=== PATIENT | female | born 1950 | race Caucasian/White ===

== ENCOUNTER 2020-08-04 08:20 | Observation (INO) ==
--- NOTE | 2020-07-06 14:28 | PAT Medication Instructions ---
Medication Instructions Date of Service July 06, 2020 Home Medications Medication Instructions Recorded Verenice Paniagua #1 ea 07/02/20 acetaminophen 500 mg tablet 1,000 mg PO Q8H PRN azelastine 205.5 mcg (0.15 %) nasal spray 2 spray INTRANASAL DAILY PRN cholestyramine (with sugar) 4 gram oral powder 1 ea PO HS diphenoxylate-atropine 2.5 mg-0.025 mg tablet 1 tab PO Q6H PRN levothyroxine 125 mcg capsule 125 mcg PO QAM loratadine 10 mg tablet 10 mg PO DAILY PRN multivitamin 1 tab PO QAM STOP taking 48 hours before surgery cholestyramine (with sugar) 4 gram oral powder 1 ea PO HS DO NOT take the morning of surgery diphenoxylate-atropine 2.5 mg-0.025 mg tablet 1 tab PO Q6H PRN loratadine 10 mg tablet 10 mg PO DAILY PRN multivitamin 1 tab PO QAM Take morning of surgery With a small sip of water, OTHERWISE NOTHING TO EAT OR DRINK AFTER MIDNIGHT: acetaminophen 500 mg tablet 1,000 mg PO Q8H PRN (okay to take up to 4 hours prior to surgery if needed) azelastine 205.5 mcg (0.15 %) nasal spray 2 spray INTRANASAL DAILY PRN (if needed) levothyroxine 125 mcg capsule 125 mcg PO QAM Take evening before surgery acetaminophen 500 mg tablet 1,000 mg PO Q8H PRN (if needed) azelastine 205.5 mcg (0.15 %) nasal spray 2 spray INTRANASAL DAILY PRN (if needed) diphenoxylate-atropine 2.5 mg-0.025 mg tablet 1 tab PO Q6H PRN (if needed) loratadine 10 mg tablet 10 mg PO DAILY PRN (if needed) Other Notes If you have any questions please call us at [phone] or [phone] or [phone] or [phone]
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
--- NOTE | 2020-07-08 11:23 | XRay Report ---
XR chest Pre-admission PA/Lat CLINICAL HISTORY: Preoperative chest COMPARISON STUDY: No previous studies for comparison. FINDINGS: The cardiac and mediastinal contours are normal. There is no evidence of focal pulmonary co nsolidation. There is no evidence of failure. No pleural effusions are visualized.[ IMPRESSION: No active disease in the chest. ACT 112: Negative or not required by law. Electronically signed by: Toi Presley M.D. 07/08/2020 11:22 AM
[2020-07-08 12:00] LABS: Basophils # (auto) 0.02 K/uL (0-0.2); Basophils % (auto) 0.4 %; Eosinophils # (auto) 0.05 K/uL (0-0.5); Hematocrit (blood only) 34.2 % (37-47); Hemoglobin 11.1 g/dL (12.0-16.0); Lymphocytes % (auto) 27.1 %; Mean Corpuscular Hemoglobin 29.5 pg (25-34); Mean Corpuscular Hgb Conc 32.5 g/dL (32-36); Monocytes # (auto) 0.44 K/uL (0.11-0.59); Monocytes % (auto) 8.5 %; Neutrophils # (auto) 3.25 K/uL (1.4-6.5); Platelet Count 270 K/uL (130-400); RDW Coefficient of Variation 13.3 % (11.5-14.5); Red Blood Count 3.76 M/uL (4.2-5.4); White Blood Count 5.16 K/uL (4.8-10.8)
[2020-07-08 12:17] LABS: Partial Thromboplastin Time 25.6 Seconds (21.0-31.0); Prothrombin Time 10.2 Seconds (9.0-12.0)
[2020-07-08 14:36] LABS: BUN Creatinine Ratio 30.5 (10-20); Calcium 9.1 mg/dl (8.5-10.1); Creatinine Clr Calc Pharmacy 64.9 ml/min; Est GFR (African American) 68.7; Est GFR (Non-African American) 59.3; Potassium 4.9 mmol/L (3.5-5.1)
--- NOTE | 2020-07-08 16:19 | Electrocardiogram Report ---
Test Reason : Blood Pressure : / mmHG Vent. Rate : 067 BPM Atrial Rate : 067 BPM P-R Int : 146 ms QRS Dur : 092 ms QT Int : 396 ms P-R-T Axes : 055 076 054 degrees QTc Int : 418 ms Normal sinus rhythm Normal ECG No previous ECGs available Confirmed by Simón Trinh ([id number]) on 07/08/2020 4:19:16 PM Referred By: Alex Mcneil Confirmed By:Simón Trinh
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
[~2020-08-04 08:20] MED LIST: ACETAMINOPHEN 500 MG TAB PO SCH; BUPIVACAINE 0.25% 30 ML VIAL ONE; BUPIVACAINE 0.5 % 5 MG/1 ML PF 10ML VIAL ONE; BUPIVACAINE LIPOSOME/PF 266 MG, BUPIVACAINE/EPINEPHRINE 50 ML, SODIUM CHLORIDE 0.9% 30 ... INFIL SCH; DEXAMETHASONE SOD INJ 4 MG/ML VIAL ONE; EPINEPHrine INJ 1 MG/ML AMP ONE; FAMOTIDINE 20 MG TAB PO SCH; GABAPENTIN 300 MG CAP PO SCH; LR 500ML BOLUS, THEN 15ML/HR IV SCH; LR 60ML/HR IV SCH; METOCLOPRAMIDE HCL 10 MG TABLET PO SCH; Scopolamine 1 MG TDSY TD SCH; TRANEXAMIC ACID 1,000 MG **IV Intra-op IV SCH; ceFAZolin 2000MG 2,000 MG/15 ML SYR IV ONE; ceFAZolin 2000MG 2,000 MG/15 ML SYR IV SCH
--- NOTE | 2020-08-04 08:25 | History & Physical Bridge Note ---
Date of Service August 04, 2020 History & Physical Bridge Note I have examined the patient, reviewed the History & Physical and in the interval since the performance of the History & Physical I have noted the following changes of clinical significance: no changes noted
[2020-08-04] MEDS ORDERED: fentaNYL citrate 100 MCG/2 ML VIAL ONE (08:51)
[2020-08-04] MEDS ORDERED: MIDAZOLAM HCL 1 MG/ML 2ML VIAL ONE ×2 (08:51)
[2020-08-04] MEDS ORDERED: PROPOFOL IV EMULSION 10 MG/ML 20 ML VIAL IV ONE (08:51)
[2020-08-04] MEDS ORDERED: LIDOCAINE HCL 2% 2 ML VIAL/AMP(20MG/ML) INFIL ONE (08:51)
[2020-08-04] MEDS ORDERED: ONDANSETRON INJ 2 MG/ML 2 ML VIAL ONE (08:52)
[2020-08-04] MEDS ORDERED: fentaNYL citrate 100 MCG/2 ML VIAL IV PRN (09:44)
[2020-08-04] MEDS ORDERED: ONDANSETRON INJ 2 MG/ML 2 ML VIAL IV PRN ×2 (09:44→14:35)
[2020-08-04] MEDS ORDERED: ATROPINE SULFATE 0.1 MG/ML 10ML SYR IV PRN (09:44)
[2020-08-04] MEDS ORDERED: ePHEDrine sulfate 50 MG/ML AMP IV PRN (09:44)
[2020-08-04] MEDS ORDERED: SODIUM CHLORIDE 0.9% PF 50 ML VIAL ONE (10:24)
[2020-08-04] MEDS ORDERED: BUPIVACAINE 0.25% 30 ML VIAL ONE (10:24)
[2020-08-04] MEDS ORDERED: BACITRACIN INJ 50,000 UNIT VIAL ONE (10:24)
[2020-08-04] MEDS ORDERED: BUPIVACAINE LIPOSOME 1.3% 266 MG/20 ML VIAL ONE (10:24)
[2020-08-04] MEDS ORDERED: EPINEPHrine INJ 1 MG/ML AMP ONE (10:25)
--- NOTE | 2020-08-04 12:42 | Operative Report ---
Post Operative Report Pre & Post Diagnosis Operation Date: 08/04/20 10:40 Pre-Op Diagnosis: Left Knee Degenerative Joint Disease Post-Op Diagnosis: Left Knee Degenerative Joint Disease I identified the patient and participated in the time-out.: Yes Procedure Operation Date: 08/04/20 10:40 Actual Procedures p Left Total Knee Replacement(Left) - Alex Mcneil MD Surgeon Alex Mcneil MD Coffee Attendant DOREEN Pinto Estimated Blood Loss 50 Findings Consistent with Post-Op Diagnosis Operative findings revealed advanced left knee tricompartment DJD. She had grade 4 [id number] disease in all 3 compartments most severe in the patellofemoral compartment. Moderate-sized joint effusion. Slight valgus deformity to her knee. Fluids 2000 cc Specimens Left knee sent for pathology. Drains None Anesthesia Type Spinal MAC Complications none Disposition Accompanied Patient To Recovery: No Disposition: Recovery Room Indications Patient is 69-year-old female is had a several year history of increasing bilateral knee pain discomfort. She has been through extensive conservative jagruti atment the past which became less successful over time. X-rays show advanced bilateral knee DJD. She elected proceed with left total knee arthroplasty. Description of Procedure Operative implants consist of: 1. Biomet Vanguard size 65 left posterior stabilized femoral component. 2. Biomet size 75 tibial tray. 3. 10 mm posterior stabilized polyethylene insert. 4. 31 x 8 all polypatella. The patient was taken to the operating room, identified, placed on the operating table supine position general contractors were properly padded. IV antibiotics tried by anesthesia team. A spinal anesthetic and abductor canal block had been applied in the holding area. Craven catheter was placed in sterile fashion. Left factor was then placed in the left lower extremities and prepped and draped in usual sterile fashion. The left leg was elevated exsanguinated with use of an Esmarch and tourniquet placed at 300 mmHg. An anterior approach left knee was then performed to longitudinal incision centered over the patella. Sharp dissection was got through subcutaneous tissue down to the level of the extensor mechanism. A medial parapatellar arthrotomy incision was made. Some subperiosteal dissection carried out medially. The fat pad was resected from each patella tendon. Lateral patellofemoral ligament was released. Patella subluxated laterally. The knee was flexed. The osteophyte taken off distal femur. The ACL and PCL were then released in the distal femur and the tibia subluxated anteriorly. The external tibial alignment jig was then placed in the interface the tibia and adjusted 12 mm medially. Proximal tibial cut was made remove about 3 to 4 mm of bone from the medial side. The tibia was then sized to a size 75. Attention drawn the femur. The distal femur stem with a sharp drop with intramedullary canal was suction. A left 5 degree valgus cutting guide was placed. The distal femoral cutting block was pinned in place. Distal femoral cut was made to take an additional 5 mm of bone off distal femur due to overall flexion contracture. The femur was then sized to a size 65. The AP cutting block was pinned parallel to the epicondylar axis which was 9 degrees of external rotation. The anterior cut, anterior chamfer, posterior cut, posterior chamfer cuts were made. Box cutting guide was placed in just slight lateral box cut was made. The knee was flexed. The remnants of the medial lateral menisci were excised. The osteophytes were taken off the posterior aspect of the femur. I did have to release the popliteus in order to equalize the flexion gap. I brought the knee out in extension and did do a release of the IT band in order to equalize the extension gap. The trial femoral component was placed. The tibial tray was pinned in maximum external rotation and the drill and stem punch were used to create defect in proximal tibia for the tibial tray. The knee was then trialed and the 10 mm insert fit most appropriately. Attention drawn the patella. Nupathe the patella was cleaned of all soft tissues. Patella thick this measured by 18 and was fairly sclerotic. I cut this down to about a size 12 mm in thickness. The patella was then sized to a size 31. The lug holes were drilled for 31 patella. The lateral osteophyte is moved. Patella button was placed. Knee was taken through range of motion patella tracked nicely with no thumbs test. Attention drawn to placing permanent components. Nupathe all trial components were removed. Bone plug was placed in the distal femur limit blood loss. Double batch Palacos G cement was mixed. A Biomet Vanguard size 65 left posterior stabilized femoral component, size 75 tibial tray, a 10 mm posterior stabilized polyethylene insert, and a 31 x 8 all polypatella were then cemented in place. Knee was brought out in full extension total cement hardened. Final cement check was then performed. The pericapsular tissues were injected with total 100 cc of combination of 20 cc of Exparel, 30 cc normal saline, 50 cc of quarter percent Marcaine with epinephrine. Patient did receive 1 g treatment exam with casting. The tendon was then let down for final tourniquet time 58 minutes. Hemostasis assured use electrocautery. The extensor mechanism closed with combination 1 PDS suture #1 Vicryl suture in [id number] fashion. Extensor mechanism checked found to be intact with subcutaneous tissue then closed with 2 Dexon suture in a buried interrupted fashion skin was closed skin rodri. Leg was then cleaned and dried a sterile dressed composed Xeroform, 4 x 4's, sterile cast padding, ABD pad, and Canelo bandage were applied. The patient then transferred to the recovery room in stable condition. Patient tolerated the procedure well and there were no complications. Marvin Pinto, my physician surveyor's assistant, was present for the entire procedure. His assistance was essential and required for appropriate patient positioning, pr epping and draping, surgical exposure, performing the technical details of the operation, placement the implants, closure of the wound, and placement of the sterile bandage. I attest to the content of the Intraoperative Record and any orders documented therein. Any exceptions are noted below.
--- NOTE | 2020-08-04 12:48 | XRay Report ---
TWO VIEWS LEFT KNEE CLINICAL HISTORY: Postoperative examination. FINDINGS: AP and crosstable lateral portable views of the left knee are obtained. A left knee arthrop lasty is in near anatomic alignment. There has been undersurface remodeling of the patella. No acute fracture is seen. There are expected postoperative changes around the knee including skin clips, sof t tissue edema, and subcutaneous gas. IMPRESSION: Expected postoperative changes status post left knee arthroplasty. No acute fracture is s een. ACT 112: Negative or not required by law. Electronically signed by: Betito Dangelo M.D. 08/04/2020 12:47 PM
--- NOTE | 2020-08-04 12:53 | Anesthesiology Progress Note ---
Date of Service August 04, 2020 Anesthesia Post Procedure Vital Signs Vital Signs: Temp Pulse Pulse Resp BP BP Pulse Ox 08/04/20 12:50 60 20 132/69 96 08/04/20 12:40 66 20 126/60 99 08/04/20 12:34 36.4 C L 91 H 16 118/55 L 95 08/04/20 09:04 36.7 C 74 18 152/80 H 99 Transfer of Care Handoff Completed per policy Notes Mental Status: alert / awake / arousable Patient Amnestic to Procedure: Yes Nausea / Vomiting: adequately controlled Pain: adequately controlled Airway Patency, RR, SpO2: stable & adequate BP & HR: stable & adequate Hydration State: stable & adequate Neuraxial Anesthesia: was administered and sensory block is resolving Anesthetic Complications: no major complications apparent and Pt Satisfied with anesthetic care
[2020-08-04] MEDS ORDERED: HYDROmorphone INJ 0.5 MG/0.5 ML SYR IV PRN (14:35)
[2020-08-04] MEDS ORDERED: bisacodyL 10 MG SUPP PR PRN (14:35)
[2020-08-04] MEDS ORDERED: NALOXONE HCL 0.4 MG/1 ML VIAL/CARP IV PRN (14:35)
[2020-08-04] MEDS ORDERED: ALUMINUM/MAGNESIUM SUSP 30 ML UDC PO PRN (14:35)
[2020-08-04] MEDS ORDERED: MAGNESIUM HYDROXIDE SUSP 30 ML UDC PO PRN (14:35)
[2020-08-04] MEDS ORDERED: METOCLOPRAMIDE HCL INJ 5 MG/ML 2 ML VIAL IV PRN (14:35)
[2020-08-04] MEDS ORDERED: DIPHENOXYLATE/ATROPINE 2.5/0.025MG TAB PO PRN (14:45)
[2020-08-04] MEDS ORDERED: LORATADINE 10 MG TAB PO PRN (15:00)
[2020-08-04] MEDS: PROSOURCE NO CARB 30 ML/PKT PO SCH ×2 (15:20→21:41)
[2020-08-04] MEDS: ACETAMINOPHEN 500 MG TAB PO SCH ×2 (15:42→22:31)
[2020-08-04] MEDS: Scopolamine CHECK PATCH PLACEMENT SCH (15:42)
[2020-08-04] MEDS: KETOROLAC TROMETHAMINE 15 MG/ML VIAL IV SCH ×2 (15:44→22:30)
[2020-08-04] MEDS: SODIUM CHLORIDE 0.9% 1000ML 1,000 ML IV SCH (17:41)
[2020-08-04] MEDS: FERROUS GLUCONATE 324 MG TAB PO SCH (17:41)
[2020-08-04] MEDS: ASCORBIC ACID 500 MG TAB PO SCH (17:42)
[2020-08-04] MEDS ORDERED: TRANEXAMIC ACID / 0.7% NACL 1,000 MG/100 ML BAG IV SCH (18:30)
[2020-08-04] MEDS: ceFAZolin 2000MG 2,000 MG/15 ML SYR IV SCH (19:46)
[2020-08-04] MEDS: DOCUSATE SODIUM 100 MG CAP PO SCH (21:29)
[2020-08-04] MEDS: SENNA 8.6 MG TAB PO SCH (21:29)
[2020-08-04] MEDS: TAPENTADOL HCL ER 50 MG TABCR PO SCH (21:39)
[2020-08-04] MEDS: CHOLESTYRAMINE LIGHT 4 GM PKT PO SCH (21:39)
[2020-08-04] MEDS: ASPIRIN 81 MG ECTAB PO SCH (21:39)
[2020-08-05] MEDS: Scopolamine CHECK PATCH PLACEMENT SCH ×3 (01:23→15:37)
[2020-08-05] MEDS: ceFAZolin 2000MG 2,000 MG/15 ML SYR IV SCH (03:25)
[2020-08-05] MEDS: KETOROLAC TROMETHAMINE 15 MG/ML VIAL IV SCH ×5 (03:25→22:08)
[2020-08-05] MEDS: SODIUM CHLORIDE 0.9% 1000ML 1,000 ML IV SCH (04:34)
[2020-08-05] MEDS: LEVOTHYROXINE SODIUM 125 MCG TABLET PO SCH (05:33)
[2020-08-05] MEDS: ACETAMINOPHEN 500 MG TAB PO SCH ×3 (05:33→22:07)
[2020-08-05 06:04] LABS: Hematocrit (blood only) 27.1 % (37-47); Mean Corpuscular Hemoglobin 30.1 pg (25-34); Mean Corpuscular Hgb Conc 33.2 g/dL (32-36); Mean Corpuscular Volume 90.6 fL (80-100); Mean Platelet Volume 10.4 fL (7.4-10.4); Platelet Count 213 K/uL (130-400); RDW Coefficient of Variation 13.5 % (11.5-14.5); RDW Standard Deviation 44.5 fL (36.4-46.3); Red Blood Count 2.99 M/uL (4.2-5.4); White Blood Count 11.27 K/uL (4.8-10.8)
[2020-08-05 06:40] LABS: BUN Creatinine Ratio 21.8 (10-20); Creatinine Clr Calc Pharmacy 65.7 ml/min; Est GFR (African American) 69.6; Potassium 4.1 mmol/L (3.5-5.1)
[2020-08-05] MEDS ORDERED: dexAMETHasone 4 MG TAB PO SCH (08:00)
[2020-08-05] MEDS: DOCUSATE SODIUM 100 MG CAP PO SCH ×2 (08:49→21:56)
[2020-08-05] MEDS: MULTIVITAMIN TAB PO SCH (08:49)
[2020-08-05] MEDS: PROSOURCE NO CARB 30 ML/PKT PO SCH ×3 (08:49→21:56)
[2020-08-05] MEDS: TAPENTADOL HCL ER 50 MG TABCR PO SCH ×2 (08:49→22:02)
[2020-08-05] MEDS: ASPIRIN 81 MG ECTAB PO SCH ×2 (08:49→22:02)
[2020-08-05] MEDS: ASCORBIC ACID 500 MG TAB PO SCH ×2 (08:49→17:14)
[2020-08-05] MEDS: FERROUS GLUCONATE 324 MG TAB PO SCH ×2 (08:50→17:14)
[2020-08-05] MEDS ORDERED: MULTIVITAMIN TAB PO SCH (09:00)
--- NOTE | 2020-08-05 15:00 | Orthopedic Progress Note ---
Date of Service August 05, 2020 Assessment & Plan (1) Status post total left knee replacement: She was seen and examined by Dr. Mnceil today. She is hoping to be discharged to rehab, likely [facility] tomorrow. Continue PT/OT. WBAT. Teds, scds, and aspirin for dvt prophylaxis. Pain is reasonably controlled. Subjective . 69 year old female POD #1 from Left tka. She's doing pretty well. Denies chest pain or shortness of breath. She has some more pain with the knee today compared to last night. Rates her pain about 3/10. Review of Systems All systems reviewed & are unremarkable except as noted in HPI & below. Physical Exam .Alert and oriented. NAD. Left leg: dressing clean, dry, intact. Able to dorsiflex and plantar flex. NVI Results & Data Results & Data Laboratory Results . Diagnostic Findings . PG Care Time/CCT Total # of Minutes Spent Total Time Spent with Patient: Total time spent is greater than 50% in coordination of care (as documented) at patient's floor/unit and/or counseling patient: Coding Level of Care Code 30736 Post Operative Follow-Up Diagnoses Status post total left knee replacement Z96.652
[2020-08-05] MEDS: oxyCODONE HCL IR 5 MG TAB (IMMEDIATE RELEASE) PO PRN ×2 (15:37→20:19)
[2020-08-05] MEDS: SENNA 8.6 MG TAB PO SCH (21:57)
[2020-08-05] MEDS: CHOLESTYRAMINE LIGHT 4 GM PKT PO SCH (22:02)
[2020-08-06] MEDS: Scopolamine CHECK PATCH PLACEMENT SCH ×2 (01:08→08:10)
[2020-08-06] MEDS: oxyCODONE HCL IR 5 MG TAB (IMMEDIATE RELEASE) PO PRN ×2 (01:59→08:09)
[2020-08-06] MEDS: KETOROLAC TROMETHAMINE 15 MG/ML VIAL IV SCH ×2 (03:28→10:18)
[2020-08-06] MEDS: LEVOTHYROXINE SODIUM 125 MCG TABLET PO SCH (05:27)
[2020-08-06] MEDS: ACETAMINOPHEN 500 MG TAB PO SCH (05:27)
[2020-08-06 06:50] LABS: Eosinophils # (auto) 0.01 K/uL (0-0.5); Eosinophils % (auto) 0.1 %; Hematocrit (blood only) 24.9 % (37-47); Hemoglobin 8.1 g/dL (12.0-16.0); Immature Granulocytes # (auto) 0.03 K/uL (0.00-0.02); Immature Granulocytes % (auto) 0.3 %; Lymphocytes # (auto) 1.46 K/uL (1.2-3.4); Lymphocytes % (auto) 15.4 %; Mean Corpuscular Hemoglobin 29.8 pg (25-34); Mean Corpuscular Hgb Conc 32.5 g/dL (32-36); Mean Corpuscular Volume 91.5 fL (80-100); Mean Platelet Volume 10.3 fL (7.4-10.4); Monocytes # (auto) 1.39 K/uL (0.11-0.59); Monocytes % (auto) 14.6 %; Neutrophils # (auto) 6.61 K/uL (1.4-6.5); Neutrophils % (auto) 69.6 %; Platelet Count 189 K/uL (130-400); RDW Coefficient of Variation 13.9 % (11.5-14.5); RDW Standard Deviation 46.3 fL (36.4-46.3); Red Blood Count 2.72 M/uL (4.2-5.4)
--- NOTE | 2020-08-06 07:55 | Progress Notes ---
DATE: 08/06/2020 SUBJECTIVE: A 69-year-old white female postop day 2 from a left knee replacement. She is doing okay. Had a rough night pain harris, but doing better this morning. No chest pain or shortness of breath. Not feeling dizzy or lightheaded. OBJECTIVE: VITAL SIGNS: Temperature is 36.8. Vital signs stable. GENERAL: Shows a pleasant elderly female. She is sitting up in bed, looks quite comfortable. EXTREMITIES: Examination of the left leg reveals the dressing to be clean, dry and intact. Leg is well aligned. She can dorsiflex and plantarflex her foot appropriately. She is neurologically intact. LABORATORY DATA: Hemoglobin 8.1. Hematocrit 24.9. ASSESSMENT: A 69-year-old white female postop day 2 from a left knee replacement, doing reasonably well. Having some pain, but seems to be doing well with pain medicines. She is anemic, but without symptoms. PLAN: 1. DVT prophylaxis including thigh-high TEDs, SCDs, and aspirin twice a day. 2. PT/OT. Weight bear as tolerated. Left total knee protocol. 3. Pain control, doing okay with current pain regimen. 4. Anemia. Continue iron supplementation. She is asymptomatic. 5. Disposition: Plan to discharge to [facility] later today.
[2020-08-06] MEDS: MULTIVITAMIN TAB PO SCH (08:08)
[2020-08-06] MEDS: FERROUS GLUCONATE 324 MG TAB PO SCH (08:08)
[2020-08-06] MEDS: PROSOURCE NO CARB 30 ML/PKT PO SCH (08:08)
[2020-08-06] MEDS: ASCORBIC ACID 500 MG TAB PO SCH (08:08)
[2020-08-06] MEDS: ASPIRIN 81 MG ECTAB PO SCH (08:08)
[2020-08-06] MEDS: DOCUSATE SODIUM 100 MG CAP PO SCH (08:08)
[2020-08-06] MEDS: TAPENTADOL HCL ER 50 MG TABCR PO SCH (10:18)
--- NOTE | 2020-08-09 18:36 | Discharge Summary ---
Date of Service August 09, 2020 Discharge Data Procedures Performed Operation Date: 08/04/20 10:40 Actual Procedures p Left Total Knee Replacement(Left) - Alex Mcneil MD Hospital Course (1) Status post total left knee replacement: This patient is a 69 year old female admitted on 08/04/20 and underwent total knee arthroplasty. She tolerated the procedure well and there were no complications. Transferred to the PACU post op and later to the orthopedic floor for further care. She was given ancef for antibiotic prophylaxis. She was also given LUIS CARLOS stockings, SCDs, and aspirin for DVT prophylaxis. Hemoglobin, hematocrit, and vital signs were monitored during her hospital stay and remained stable. Did not require any blood transfusions. There were no complications duri ng her hospital stay. By post op day #2 the patient was tolerating a regular diet, pain was reasonably controlled with oral pain medicine, and she was participating in physical therapy. On post op day #2 the patient was discharged to a rehab facility. SHe was given printed discharge instructions including prescriptions for extra strength tylenol, aspirin, iron supplement, and oxycodone. Continue physical therapy, weight bearing as tolerated. Continue LUIS CARLOS stockings. Follow up approximately 2 weeks post op or sooner if there are problems or concerns. Coding Level of Care Code None Diagnoses Status post total left knee replacement Z96.652
== END 2020-08-06 12:12 ==
LOC: ASU 08:20 → 3E 08:20

== ENCOUNTER 2022-01-25 05:53 | Observation (INO) ==
--- NOTE | 2021-12-15 16:11 | PAT Medication Instructions ---
Medication Instructions Date of Service December 15, 2021 Home Medications Medication Instructions Recorded Wheeled Walker #1 ea 07/02/20 oxycodone 5 mg tablet 5 - 10 mg PO Q6H PRN pain #40 tabs 08/05/20 acetaminophen 500 mg tablet (Acetaminophen Extra Strength) 1,000 mg PO Q8H PRN cholestyramine (with sugar) 4 gram oral powder 1 ea PO HS diphenoxylate-atropine 2.5 mg-0.025 mg tablet 1 tab PO Q6H PRN Diarrhea loratadine 10 mg tablet 10 mg PO DAILY PRN multivitamin 1 tab PO QAM Wheeled Walker #1 ea levothyroxine 125 mcg tablet 125 mcg PO QAM oxycodone 5 mg tablet 5 - 10 mg PO Q6H PRN STOP taking 48 hours before surgery cholestyramine (with sugar) 4 gram oral powder 1 ea PO HS DO NOT take the morning of surgery diphenoxylate-atropine 2.5 mg-0.025 mg tablet 1 tab PO Q6H PRN Diarrhea loratadine 10 mg tablet 10 mg PO DAILY PRN multivitamin 1 tab PO QAM Take morning of surgery With a small sip of water, OTHERWISE NOTHING TO EAT OR DRINK AFTER MIDNIGHT: acetaminophen 500 mg tablet (Acetaminophen Extra Strength) 1,000 mg PO Q8H PRN (if needed) levothyroxine 125 mcg tablet 125 mcg PO QAM oxycodone 5 mg tablet 5 - 10 mg PO Q6H PRN(if needed) Take evening before surgery acetaminophen 500 mg tablet (Acetaminophen Extra Strength) 1,000 mg PO Q8H PRN (if needed) oxycodone 5 mg tablet 5 - 10 mg PO Q6H PRN(if needed) Other Notes If you have any questions please call us at [phone] or [phone] or [phone] or [phone]
--- NOTE | 2021-12-20 13:09 | Anesthesiology Consultation ---
Date of Service December 20, 2021 Assessment & Plan (1) Encounter for pre-operative examination: - COVID screening: Per assessment on 12/20: No known COVID-19 positive contacts or current COVID-19 related symptoms. Travel screen negative. Patient vaccinated. At surgeon discretion if preop Covid testing being done. - S/P Left TKA (08/04/20): SAB at L3/4 x1 attempt + PNB at [facility]. No issues noted per post-op anesthesia progress note. - Outpatient joint assessment: If surgeon requests review for outpatient joint pathway, patient is acceptable candidate for outpatient joint program from anesthesia standpoint pending surgeon's office assessment of pt motivation/support/completion of same day joint program preop requirements. - Anxious: Pt reports significant anxiety related to upcoming surgery/anesthesia- reporting that preoperatively she often gets nausea and diarrhea r/t the anxiety. Pt requesting preop anxiolytic if possible. Chart Review Chart Review: Acceptable Risk for Surgery and Patient seen in Pre Admission Testing Teaching & Discussion Pre-Anesthesia Teaching/Discussion Notes: Instructed NPO after midnight before surgery,except medications with 15 cc of water. Medication instructions provided according to the PAT guidelines. History Surgery Operation Date: 01/25/22 12:45 Proposed Procedures p Right Total Knee Arthroplasty - Alex Mcneil MD Height/Weight Height: 5 ft 7.75 in Weight: 101 kg Allergies Allergy/AdvReac Type Severity Reaction Status Date / Time Penicillins Allergy Mild Watery eyes Verified 12/14/21 12:08 hydrocodone [From Vicodin] AdvReac Severe Dizziness, Verified 12/14/21 12:08 heart racing, "hot" feeling Medications Home Medications Medication Instructions Recorded Confirmed Last Taken acetaminophen 500 mg tablet 1,000 mg PO Q8H PRN Pain 01/01/20 12/14/21 08/03/20 08:30 (Acetaminophen Extra Strength) cholestyramine (with sugar) 4 gram 1 ea PO HS 01/01/20 12/14/21 08/01/20 20:00 oral powder diphenoxylate-atropine 2.5 1 tab PO Q6H PRN Diarrhea 01/01/20 12/14/21 08/03/20 mg-0.025 mg tablet loratadine 10 mg tablet 10 mg PO DAILY PRN ALLERGY RELIEF 01/01/20 12/14/21 08/03/20 08:30 multivitamin 1 tab PO QAM 01/01/20 12/14/21 08/03/20 08:30 Wheeled Walker #1 ea 07/02/20 12/14/21 Unknown levothyroxine 125 mcg tablet 125 mcg PO QAM 08/04/20 12/14/21 08/04/20 oxycodone 5 mg tablet 5 - 10 mg PO Q6H PRN pain #40 tabs 08/05/20 12/14/21 Unknown Past Medical History Medical History (Updated 12/20/21 @ 15:04 by Dior Ayon) Anemia Anxiety Chronic rhinitis CKD (chronic kidney disease) Degenerative disc disease Lumbar History of anemia No known hx of blood transfusions Hypothyroidism Jaw clicking R>L, no locking Obesity Osteoarthritis Exercise / Class Metabolic Activity II 4-5 Yardwork/Stairs/Walk up hill (one FS (no CP, no SOB)) Past Family History Family History Mother Family history of diabetes mellitus Grandmother (Maternal) Family history of diabetes mellitus Other No family history of adverse response to anesthesia Past Surgical History Surgical History H/O: hysterectomy History of appendectomy History of section x1 History of cholecystectomy History of colonoscopy History of esophagogastroduodenoscopy (EGD) History of tooth extraction History of total knee replacement Left TKA (08/04/20): SAB at L3/4 x1 attempt + PNB at [facility]. No issues noted per post-op anesthesia progress note. Past Anesthesia History No Hx of Anesthesia Complications and No Family Hx of Anesthesia Complications History of PONV No Hx of PONV and Hx of Motion Sickness (Occasional) Social History Smoking Status: Former smoker tobacco type: cigarettes Do You Dip or Chew Tobacco: No Smoking End Date: Quit 40 years ago Hx Alcohol Use: Yes Alcohol type: beer and wine alcohol intake frequency: holidays/special occasions only Hx Substance Use: No substance use type: does not use Review of Systems Patient denies chest pain, shortness of breath, dyspnea on exertion, fever, chills, cough, wheezing, palpitations. Physical Exam Vital Signs VITALS BP 123/58 P 85 TEMP 98.3 SP02 96%RA RESP 16 PHYSICAL Full cervical extension range of motion. Full TMJ range of motion. TMD 3.5 finger breaths Mallampati Score 2 Dentition: upper/lower full dentures Lungs: clear throughout to auscultation Cardiac: regular rate and rhythm, no murmurs noted Spine: normal Carotid arteries: negative bruit Extremities: no edema Lab Results Anesthesia Preop Results Results Anesthesia Widget: WBC 6.29 K/ul (4.8-10.8) 12/20/21 Hgb 10.4 g/dl (12.0-16.0) L 12/20/21 Hct 31.9 % (34.1-44.9) L 12/20/21 Plt 233 K/uL (130-400) 12/20/21 Na 138 mmol/L (136-145) 12/20/21 K 4.3 mmol/L (3.5-5.1) 12/20/21 Cl 109 mmol/L (98-107) H 12/20/21 CO2 23 mmol/L (21-32) 12/20/21 BUN 30 mg/dl (6-23) H 12/20/21 Creat 0.93 mg/dl (0.6-1.2) 12/20/21 Glucose Level 96 mg/dl (70-99(Fasting)) 12/20/21 PT 10.4 Seconds (9.0-12.0) 12/20/21 PTT 27.3 Seconds (21.0-31.0) 12/20/21 INR 1.0 (0.9-1.1) 12/20/21 Blood Type O Positive 12/20/21 Antibody Screen NEGATIVE 12/20/21 Testing Electrocardiogram Date: 12/20/21 Normal sinus rhythm at 78 bpm. unconfirmed report. Chest X-Ray Date: 12/20/21 FINDINGS: Cardiomediastinal and hilar silhouettes are within normal limits. Atherosclerosis of the aorta. No pneumothorax, pleural effusion, airspace consolidation or overt pulmonary edema. Mild right hemidiaphragmatic elevation. Cholecystectomy. Degenerative changes of the shoulders and spine. IMPRESSION: No acute process.
--- NOTE | 2022-01-22 13:26 | History and Physical Report ---
DATE OF ADMISSION: 01/25/2022 CHIEF COMPLAINT: Right knee pain and discomfort. HISTORY OF PRESENT ILLNESS: The patient is a 71-year-old female well known to me from a previous lef t knee replacement done about a year and a half ago. She continues to be bothered by right knee pain at this point. She describes global pain in her knee. The more she is on it, the more it hurts. Ge ts stiff as well as the day goes on. She has had multiple injections, which provided very temporary relief. She would like to have her right knee fixed. Very happy with her left knee. PAST MEDICAL HISTORY: Significant for: 1. Hypothyroidism. 2. Low back pain/sciatica. 3. Gastroesophageal reflux disease. 4. Mild obesity with BMI of 32. 5. Hiatal hernia. PAST SURGICAL HISTORY: Includes: 1. . 2. Hysterectomy. 3. Cholecystectomy. 4. Left total knee replacement done on 08/04/2020. ALLERGIES: PENICILLIN, WHICH CAUSES SOME EYE WATERING. No respiratory problems. She does okay with oxycodone. CURRENT MEDICATIONS: Include: 1. Levothyroxine. 2. Tylenol. 3. Loratadine. 4. Multivitamin. 5. Azelastine nasal spray. SOCIAL HISTORY: A 71-year-old female. She lives by herself. Does not smoke. No alcohol intake. FAMILY HISTORY: Noncontributory. REVIEW OF SYSTEMS: Negative for diabetes, neurologic problem, vascular problem, or bleeding disorder s. No chest pain or shortness of breath. No history of DVT or PE. No known bleeding problems. PHYSICAL EXAMINATION: GENERAL: Shows a pleasant middle-aged female, looks to be in pretty good health. HEENT: Benign. NECK: Supple. No lymphadenopathy. LUNGS: Clear to auscultation. HEART: Regular rate and rhythm. ABDOMEN: Soft, nontender, nondistended. EXTREMITIES: Grossly neurovascularly intact except as follows: Examination of both knees revealed p atient walks with a slight bit of a limp. Examination of the right knee reveals a slight valgus alig nment to her knee. She has got a flexion contracture of about 10 to 15 degrees and bends only to abo ut 110 degrees. Fairly stiff knee. No pain with hip motion. Examination of the left knee reveals a well-healed incision. She has got anatomic alignment. Range of motion is 0 to 120. X-RAYS: X-rays of the right knee are reviewed. It shows advanced right knee tricompartment DJD. Sh elidia has got complete loss of her joint space, primarily laterally, but some medially. She got osteophy juni in all 3 compartments. The left knee replacement looks to be in good position without problems. ASSESSMENT: A 71-year-old female a year and a half out from the left knee replacement with advanced right knee degenerative joint disease. She has failed conservative measures. She would like to have her right knee fixed. PLAN: We will take her to the operating room and do a right total knee replacement. The risks and b enefits of the procedure were explained to the patient and include but not limited to DVT, PE, , infection, neurological injury, vascular injury, bleeding problem, pain, limited range of motion, st iffness, failure to relieve her symptoms, incomplete relief of symptoms. The patient understands and desires to proceed. Informed consent was obtained. As far as discharge plans, she is hoping to go to [facility] as she did [facility] time. She will follow braydon jacobs in clinic 2 weeks postoperatively. Job ID: [id number]
[2022-01-25] MEDS ORDERED: METOCLOPRAMIDE HCL 10 MG TABLET PO SCH (06:00)
[2022-01-25] MEDS ORDERED: FAMOTIDINE 20 MG TAB PO SCH (06:00)
[2022-01-25] MEDS ORDERED: CeleBREX 200 MG CAP PO SCH (06:00)
[2022-01-25] MEDS ORDERED: LR 500ML BOLUS, THEN 15ML/HR IV SCH (06:00)
[2022-01-25] MEDS ORDERED: Scopolamine 1 MG TDSY TD SCH (06:00)
[2022-01-25] MEDS ORDERED: LR 60ML/HR IV SCH (06:00)
[2022-01-25] MEDS ORDERED: ACETAMINOPHEN 500 MG TAB PO SCH (06:00)
[2022-01-25] MEDS ORDERED: BUPIVACAINE LIPOSOME/PF 266 MG, BUPIVACAINE/EPINEPHRINE 50 ML, SODIUM CHLORIDE 0.9% 30 ... INFIL SCH (06:00)
[2022-01-25] MEDS ORDERED: TRANEXAMIC ACID 1,000 MG **IV Intra-op IV SCH (06:00)
[2022-01-25] MEDS ORDERED: ceFAZolin 2000MG 2,000 MG/15 ML SYR IV SCH (06:00)
[2022-01-25] MEDS ORDERED: ROPIVACAINE 0.5% 5 MG/ML 30 ML VIAL ONE (06:31)
[2022-01-25] MEDS ORDERED: BUPIVACAINE 0.5 % 5 MG/1 ML PF 10ML VIAL ONE (06:31)
[2022-01-25] MEDS ORDERED: EPINEPHrine INJ 1 MG/ML AMP ONE (06:31)
--- NOTE | 2022-01-25 06:54 | History & Physical Bridge Note ---
Date of Service January 25, 2022 History & Physical Bridge Note I have examined the patient, reviewed the History & Physical and in the interval since the performance of the History & Physical I have noted the following changes of clinical significance: no changes noted
[2022-01-25] MEDS ORDERED: MIDAZOLAM HCL 1 MG/ML 2ML VIAL ONE (07:16)
[2022-01-25] MEDS ORDERED: fentaNYL citrate 100 MCG/2 ML VIAL ONE (07:16)
[2022-01-25] MEDS ORDERED: SODIUM CHLORIDE 0.9% PF 50 ML VIAL ONE (08:04)
[2022-01-25] MEDS ORDERED: BUPIVACAINE/EPINEPHRINE 0.25% 1:200,000 30 ML VIAL ONE (08:05)
[2022-01-25] MEDS ORDERED: BUPIVACAINE LIPOSOME 1.3% 266 MG/20 ML VIAL ONE (08:05)
[2022-01-25] MEDS ORDERED: ATROPINE SULFATE 0.1 MG/ML 10ML SYR IV PRN (08:12)
[2022-01-25] MEDS ORDERED: HYDROmorphone INJ 1 MG/ML SYRINGE IV PRN (08:12)
[2022-01-25] MEDS ORDERED: ePHEDrine sulfate 50 MG/ML AMP IV PRN (08:12)
[2022-01-25] MEDS ORDERED: ONDANSETRON INJ 2 MG/ML 2 ML VIAL IV PRN ×2 (08:12→11:51)
[2022-01-25] MEDS ORDERED: KETOROLAC 30 MG/ML VIAL IV PRN (08:12)
[2022-01-25] MEDS ORDERED: PROPOFOL IV EMULSION 10 MG/ML 20 ML VIAL IV ONE (09:13)
[2022-01-25] MEDS ORDERED: LIDOCAINE 2% MPF LOCAL 5 ML VIAL INFIL ONE (09:13)
[2022-01-25] MEDS ORDERED: ONDANSETRON INJ 2 MG/ML 2 ML VIAL ONE (09:13)
--- NOTE | 2022-01-25 10:44 | Operative Report ---
PG Post Operative Report Pre & Post Diagnosis Operation Date: 01/25/22 08:50 Pre-Op Diagnosis: Right Knee Degenerative Joint Disease Post-Op Diagnosis: Right Knee Degenerative Joint Disease I identified the patient and participated in the time-out.: Yes Procedure Operation Date: 01/25/22 08:50 Actual Procedures p Right Total Knee Arthroplasty(Right) - Alex Mcneil MD Surgeon Alex Mcneil MD Computer Repair Technician Marvin Pinto PA-C Estimated Blood Loss 50 Findings Consistent with Post-Op Diagnosis Operative findings were advanced right knee tricompartment DJD. She had extensive grade 4 [id number] disease in all 3 compartments with a valgus deformity to her knee as well as her chronic ACL deficiency. Diffuse osteopenia. Osteophytes in all 3 compartments. Fluids 1000 cc Specimens Right knee sent for pathology Drains None Anesthesia Type Spinal MAC Complications none Disposition Accompanied Patient To Recovery: No Indications Patient is a 71-year-old female said a long history of bilateral knee pain discomfort. She been through extensive conservative treatment. Became less successful over time. She underwent a left knee replacement just back in July and is done well from this. Continued be limited by right knee pain discomfort and stiffness. She elected proceed with surgical treatment. Description of Procedure Operative implants consist of: 1 Biomet Vanguard size 65 right posterior stabilized femoral component. 2. Biomet size 75 tibial tray. 3. 10 mm posterior stabilized polyethylene insert. 4. 34 x 8 and half all Paller patella. The patient was taken the operating room, identified, and placed on the operating table supine position. All contact areas were properly padded. IV antibiotics arrived by the anesthesia team. Spinal anesthetic and abductor canal block had been provided in the holding area. A Craven catheter was placed in sterile fashion for right Tetrick was then placed in the right lower extremities and prepped and draped in usual sterile fashion. The right leg was elevated exsanguinated with use of an Esmarch and the tourniquet was set at 300 mmHg. An anterior approach to the right knee was then performed through a longitudinal incision centered over the patella. Sharp dissection was got through subcutaneous this down the extensor mechanism. A medial parapatellar arthrotomy incision was made. Some subperiosteal dissection was carried out medially. The fat pad was resected from Neath the patella tendon. Lateral patellofemoral ligament was released. The patella subluxated laterally and the knee was flexed. The osteophytes were taken off distal femur. The ACL was absent. The PCL was released and the tibia subluxated anteriorly. The external tibial alignment jig was then placed in the interface the tibia and adjusted 14 mm medially. Proximal tibial cut was made remove about 3 to 4 mm of bone from the medial side. The tibia was then sized to a size 75. Attention drawn the femur. The distal femur was entered with sharp drill. Intramedullary canal was suction. A right 5 degree valgus cutting guide was placed. Distal femoral cutting block was pinned in place. Distal femoral cut was made to take an additional 3 mm of bone off distal femur. The femur was then sized to a size 65. The AP cutting block was pinned parallel to the epicondylar axis which was 7 degrees of external rotation. The anterior cut, anterior chamfer, posterior cut, posterior chamfer cuts were made. The box cutting guide was placed in just slight lateral and the box cut was made. The knee was flexed. The remnants of the medial and lateral menisci were excised. The osteophytes taken off the pos terior aspect the femur. A trial femoral component was placed. The tibial tray was pinned in maximum external rotation and the drill and stem punch were used to create defect in proximal tibia for the tibial tray. The knee was then trialed and the 10 mm insert fit most appropriately. Attention drawn the patella. The patella was cleaned of all soft tissues. Patella thickness measured 18 mm in thickness was cut down to 12. Was sized to a size 34 patella. The lug holes were drilled for the 34 patella. The lateral osteophyte was removed. Patella button was placed. Knee was taken through range of motion patella tracked nicely with no thumbs test. Attention drawn to placing permanent components. All trial components were removed. Bone plug was placed into the distal femur to limit blood loss. A double batch Palacos G cement was mixed. A Biomet Vanguard size 65 right posterior stabilized femoral component, size 75 tibial tray, 10 mm posterior stabilized polyethylene insert, and a 34 x 8 and half all Paller patella then cemented in place. The knee was brought out into full extension until cement hardened. Final cement check was then performed. The pericapsular tissues were injected with total of 100 cc of combination of 20 cc of Exparel, 30 cc normal saline, 50 cc of quarter percent Marcaine with epinephrine. Patient did receive 1 g tranexamic acid. The tourniquet was then let down for final tourniquet time 57 minutes. Hemostasis reduced electrocautery. Extensor mechanism closed with combination 1 PDS suture #1 Vicryl suture in [id number] fashion. Extensor mechanism checked found to be intact and subcutaneous tissue then closed with 2 Dexon suture buried knot fashion and the skin was closed with skin rodri. Leg was then cleaned and dried a sterile dressing was Xeroform, 4 x 4's, sterile cast padding, Canelo bandage were applied. Patient then transferred to the recovery room in stable condition. The patient tolerated the procedure well and there were no complications. Marvin Pinto, my physician sales assistants and salespersons, was present for the entire procedure. His assistance was essential and required for appropriate patient positioning, prepping and draping, surgical exposure, performing the technical details of the operation, placement the implants, closure of the wound, and placement of the sterile bandage. I attest to the content of the Intraoperative Record and any orders documented therein. Any exceptions are noted below.
[2022-01-25] MEDS ORDERED: bisacodyL 10 MG SUPP PR PRN (11:51)
[2022-01-25] MEDS ORDERED: [UNRECOGNIZED DRUG - OTHER] PO PRN (11:51)
[2022-01-25] MEDS ORDERED: ALUMINUM/MAGNESIUM SUSP 30 ML UDC PO PRN (11:51)
[2022-01-25] MEDS ORDERED: LORATADINE 10 MG TAB PO PRN (11:51)
[2022-01-25] MEDS ORDERED: MAGNESIUM HYDROXIDE SUSP 30 ML UDC PO PRN (11:51)
[2022-01-25] MEDS ORDERED: HYDROmorphone INJ 0.5 MG/0.5 ML SYR IV PRN (11:51)
[2022-01-25] MEDS ORDERED: NALOXONE HCL 0.4 MG/1 ML VIAL/CARP IV PRN (11:51)
[2022-01-25] MEDS ORDERED: METOCLOPRAMIDE HCL INJ 5 MG/ML 2 ML VIAL IV PRN (11:51)
--- NOTE | 2022-01-25 13:03 | Anesthesiology Progress Note ---
Date of Service January 25, 2022 Anesthesia Post Procedure Vital Signs Vital Signs: Temp Pulse Resp BP Pulse Ox O2 Del Method 01/25/22 12:45 61 16 154/74 H 96 Room Air 01/25/22 11:45 60 14 168/77 H 96 Room Air 01/25/22 11:30 59 L 14 159/80 H 95 Room Air 01/25/22 11:15 60 14 158/72 H 94 Room Air 01/25/22 11:05 36.5 C 68 14 146/74 H 95 Room Air 01/25/22 10:55 63 14 143/73 H 94 Room Air 01/25/22 10:45 63 20 116/89 98 Room Air 01/25/22 10:39 36.5 C 70 16 144/71 H 96 Room Air 01/25/22 06:19 36.7 C 76 20 136/83 95 Room Air Pain Intensity Right Knee: Pain Intensity: 0 Transfer of Care Handoff Completed per policy Notes Mental Status: alert / awake / arousable Patient Amnestic to Procedure: Yes Nausea / Vomiting: adequately controlled Pain: adequately controlled Airway Patency, RR, SpO2: stable & adequate BP & HR: stable & adequate Hydration State: stable & adequate Anesthetic Complications: no major complications apparent
--- NOTE | 2022-01-25 14:06 | XRay Report ---
TWO VIEWS RIGHT KNEE CLINICAL HISTORY: Postoperative examination. FINDINGS: AP and crosstable lateral portable views of the right knee are obtained. A right knee arthr oplasty is in near anatomic alignment. There has been undersurface remodeling of the patella. No acut e fracture is seen. There are expected postoperative changes around the knee including skin clips, so ft tissue edema, and subcutaneous gas. IMPRESSION: Expected postoperative changes status post right knee arthroplasty. No acute fracture is seen. ACT 112: Negative or not required by law. Electronically signed by: Betito Dangelo M.D. 01/25/2022 2:04 PM
[2022-01-25] MEDS: oxyCODONE HCL IR 5 MG TAB (IMMEDIATE RELEASE) PO PRN (14:31)
[2022-01-25] MEDS: DIPHENOXYLATE/ATROPINE 2.5/0.025MG TAB PO PRN ×2 (14:47→21:24)
[2022-01-25] MEDS: SODIUM CHLORIDE 0.9% 1000ML 1,000 ML IV SCH (15:56)
[2022-01-25] MEDS: ACETAMINOPHEN 500 MG TAB PO SCH ×2 (15:59→21:25)
[2022-01-25] MEDS: KETOROLAC TROMETHAMINE 15 MG/ML VIAL IV SCH ×2 (16:00→16:02)
[2022-01-25] MEDS: Scopolamine CHECK PATCH PLACEMENT SCH (16:03)
[2022-01-25] MEDS ORDERED: TRANEXAMIC ACID / 0.7% NACL 1,000 MG/100 ML BAG IV SCH (16:45)
[2022-01-25] MEDS: ceFAZolin 2000MG 2,000 MG/15 ML SYR IV SCH (17:29)
[2022-01-25] MEDS: ASCORBIC ACID 500 MG TAB PO SCH (18:16)
[2022-01-25] MEDS: ASPIRIN 81 MG ECTAB PO SCH (20:23)
[2022-01-25] MEDS: CHOLESTYRAMINE LIGHT 4 GM PKT PO SCH (20:23)
[2022-01-25] MEDS: TAPENTADOL HCL ER 50 MG TABCR PO SCH (20:23)
[2022-01-25] MEDS: DOCUSATE SODIUM 100 MG CAP PO SCH (20:25)
[2022-01-25] MEDS: SENNA 8.6 MG TAB PO SCH (20:25)
[2022-01-26] MEDS: ceFAZolin 2000MG 2,000 MG/15 ML SYR IV SCH (00:20)
[2022-01-26] MEDS: Scopolamine CHECK PATCH PLACEMENT SCH ×3 (00:25→16:24)
[2022-01-26] MEDS: SODIUM CHLORIDE 0.9% 1000ML 1,000 ML IV SCH (00:25)
[2022-01-26] MEDS: LEVOTHYROXINE SODIUM 125 MCG TABLET PO SCH (05:39)
[2022-01-26] MEDS: ACETAMINOPHEN 500 MG TAB PO SCH ×3 (05:39→23:17)
[2022-01-26 07:50] LABS: Hematocrit (blood only) 29.1 % (34.1-44.9); Hemoglobin 9.5 g/dl (12.0-16.0); Mean Corpuscular Hemoglobin 28.9 pg (25.0-34.0); Mean Corpuscular Hgb Conc 32.6 g/dL (32.0-36.0); Mean Corpuscular Volume 88.4 fL (80.0-100.0); Mean Platelet Volume 10.1 fL (9.4-12.3); Platelet Count 196 K/uL (130-400); RDW Coefficient of Variation 12.7 % (11.5-14.5); RDW Standard Deviation 41.3 fL (36.4-46.3); Red Blood Count 3.29 M/uL (3.93-5.22); White Blood Count 7.95 K/ul (4.8-10.8)
[2022-01-26] MEDS ORDERED: dexAMETHasone 10 MG in SYRINGE 0 ML IV SCH (08:00)
[2022-01-26 08:27] LABS: BUN Creatinine Ratio 14.5 (10-20); Calcium 8.2 mg/dl (8.5-10.1); Creatinine Clr Calc Pharmacy 77.4 ml/min; Est GFR (African American) 82.8 ml/min; Est GFR (Non-African American) 71.4 ml/min; Potassium 4.1 mmol/L (3.5-5.1)
[2022-01-26] MEDS: DOCUSATE SODIUM 100 MG CAP PO SCH ×2 (08:37→20:54)
[2022-01-26] MEDS: TAPENTADOL HCL ER 50 MG TABCR PO SCH ×2 (08:42→20:48)
[2022-01-26] MEDS: ASPIRIN 81 MG ECTAB PO SCH ×2 (08:42→20:50)
[2022-01-26] MEDS: ASCORBIC ACID 500 MG TAB PO SCH ×2 (08:42→16:26)
[2022-01-26] MEDS: MULTIVITAMIN TAB PO SCH (08:42)
[2022-01-26] MEDS ORDERED: MULTIVITAMIN TAB PO SCH (09:00)
--- NOTE | 2022-01-26 12:24 | Progress Notes ---
DATE OF SERVICE: 01/26/2022. SUBJECTIVE: A 71-year-old female postoperative day 1 from right knee replacement. She is doing quit e a bit better today. She has had some diarrhea preoperatively, but this seems to be a bit better ov er the past 12-24 hours. She was nauseated last evening, feeling better this morning. No chest pain or shortness of breath. Not feeling dizzy or lightheaded. OBJECTIVE: VITAL SIGNS: Temperature 36.8. Vital signs are stable. PHYSICAL EXAMINATION: GENERAL: Shows a pleasant middle-aged female. Lying in bed, looks pretty comfortable. LUNGS: Clear to auscultation. HEART: Regular rate and rhythm. ABDOMEN: Soft, nontender, nondistended. EXTREMITIES: Grossly neurovascularly intact except as follows: Examination of the right leg reveals the leg to be well aligned. Dressing is clean, dry and intact. She can dorsiflex and plantarflex h er foot appropriately. NEUROLOGIC: She is neurologically intact. LABORATORY DATA: Hemoglobin 9.5. Hematocrit 29.1. Electrolytes are stable. ASSESSMENT: A 71-year-old female postoperative day 1 from right knee replacement, doing reasonably w ell. Pain is controlled. She has had some intermittent diarrhea preoperatively, but this seems to b e improved currently. PLAN: 1. DVT prophylaxis including thigh-high TEDs, SCDs, and aspirin twice a day. 2. PT/OT. Weight bear as tolerated. Right total knee protocol. 3. Pain control, doing okay with current pain regimen. 4. Disposition: She is hoping to go to [facility] for a brief rehab stay. [employer] is working on this. Job ID: [id number]
[2022-01-26] MEDS: oxyCODONE HCL IR 5 MG TAB (IMMEDIATE RELEASE) PO PRN ×2 (14:07→20:48)
[2022-01-26] MEDS: SENNA 8.6 MG TAB PO SCH (20:54)
[2022-01-26] MEDS: CHOLESTYRAMINE LIGHT 4 GM PKT PO SCH (20:54)
[2022-01-27] MEDS: Scopolamine CHECK PATCH PLACEMENT SCH ×3 (01:46→15:48)
[2022-01-27] MEDS: ACETAMINOPHEN 500 MG TAB PO SCH ×2 (05:27→14:54)
[2022-01-27] MEDS: LEVOTHYROXINE SODIUM 125 MCG TABLET PO SCH (05:27)
[2022-01-27] MEDS: TAPENTADOL HCL ER 50 MG TABCR PO SCH (08:40)
[2022-01-27] MEDS: MULTIVITAMIN TAB PO SCH (08:40)
[2022-01-27] MEDS: ASPIRIN 81 MG ECTAB PO SCH (08:40)
[2022-01-27] MEDS: ASCORBIC ACID 500 MG TAB PO SCH ×2 (08:40→16:16)
[2022-01-27] MEDS: DOCUSATE SODIUM 100 MG CAP PO SCH (08:42)
--- NOTE | 2022-01-27 09:04 | Progress Notes ---
DATE OF SERVICE: 01/27/2022. SUBJECTIVE: A 71-year-old female postop day 2 from right knee replacement. Doing much better this m orning. Pain is controlled. Just feeling better. OBJECTIVE: VITAL SIGNS: Temperature 37.0. Vital signs are stable. PHYSICAL EXAMINATION: GENERAL: Shows a pleasant middle-aged female. She is sitting up on bed this morning and looks quite good. Looks comfortable. EXTREMITIES: Examination of the right leg reveals the leg to be well aligned. Dressing is clean, dr y and intact. She is neurologically intact. ASSESSMENT: A 71-year-old female postoperative day 2 from right knee replacement, doing quite a bit better. Pain is controlled. She is neurologically intact. PLAN: 1. DVT prophylaxis includes thigh-high TEDs, SCDs, and aspirin twice a day. 2. PT, OT, weightbear as tolerated. Right total knee protocol. 3. Pain control, doing okay with current pain regimen. 4. Disposition: Plan to discharge to rehab today. We will make sure she has got a bed and approved . Job ID: [id number]
[2022-01-27] MEDS: oxyCODONE HCL IR 5 MG TAB (IMMEDIATE RELEASE) PO PRN (13:09)
--- NOTE | 2022-01-28 16:06 | Discharge Summary ---
Date of Service January 28, 2022 Discharge Data Procedures Performed Operation Date: 01/25/22 08:50 Actual Procedures p Right Total Knee Arthroplasty(Right) - Alex Mcneil MD Hospital Course (1) Status post total right knee replacement: This is a 71 year old patient admitted on 01/25/22 and underwent total knee arthroplasty. She tolerated the procedure well and there were no complications. Transferred to the PACU post op and later to the orthopedic floor for further care. She was given ancef for antibiotic prophylaxis. She was also given LUIS CARLOS stockings, SCDs, and aspirin for DVT prophylaxis. Hemoglobin, hematocrit, and vital signs were monitored during her hospital stay and remained stable. Did not require any blood transfusions. There were no complications during her hospital stay. By post op day #2 the patient was tolerating a regular diet, pain was reasonably controlled with oral pain medicine, and she was participating in physical therapy. On post op day #2 the patient was discharged to a rehab facility. She was given printed discharge instructions including prescriptions for extra strength tylenol, aspirin, and oxycodone. Continue physical therapy, weight bearing as tolerated. Continue LUIS CARLOS stockings. Follow up approximately 2 weeks post op or sooner if there are problems or concerns. Coding Level of Care Code None Diagnoses Status post total right knee replacement Z96.651
== END 2022-01-27 17:20 ==
LOC: PACUINP 05:53 → ASU 05:53 → 3E 15:45

== ENCOUNTER 2022-07-31 13:05 | Inpatient (IN) ==
[2022-07-31] MEDS ORDERED: ONDANSETRON INJ 2 MG/ML 2 ML VIAL IV STA ×2 (14:14→16:43)
[2022-07-31] MEDS ORDERED: LIDOCAINE 5% 1 PATCH TD STA (14:14)
[2022-07-31] MEDS ORDERED: HYDROmorphone INJ 0.5 MG/0.5 ML SYR IV STA ×2 (14:14→16:38)
--- NOTE | 2022-07-31 14:18 | Emergency Department Note ---
History of Present Illness General Chief complaint: Back Injury/Pain Stated complaint: SEVERE BACK PAIN SHOOTING DOWN LEG Time Seen by Provider: 07/31/22 13:58 History of Present Illness Maximum Pain Intensity: 10 This is a 71-year-old female that presents to the emergency department via private vehicle accompanied by [id number] with complaints of "severe right low back pain that radiates down right leg". Patient began initially with some discomfort this past Monday. No known trauma or injury. She believes that she rolled over in bed causing her discomfort. She was doing okay until yesterday. It seemed to worsen yesterday. She did have a 6-hour car ride yesterday. Kenya montgomery denies any history of L-spine surgery. No fevers or chills. No abdominal pain. No chest pain or shortness of breath. She points to the right low back/right gluteal region as location of discomfort that radiates through the right gluteal region and into the right lower extremity to the foot. It is a sharp pain. Current pain 10/10. She notes that she cannot stand up secondary to the pain or fully straighten. She does note some lower extremity weakness. She denies any bowel or bladder incontinence or numbness/tingling to genital region. Home Medications Medication Instructions Recorded Confirmed Type cholestyramine (with sugar) 4 gram 1 ea PO HS 01/01/20 07/31/22 History oral powder diphenoxylate-atropine 2.5 1 tab PO Q6H PRN Diarrhea 01/01/20 07/31/22 History mg-0.025 mg tablet loratadine 10 mg tablet 10 mg PO DAILY PRN ALLERGY RELIEF 01/01/20 07/31/22 History multivitamin 1 tab PO QAM 01/01/20 07/31/22 History Wheeled Walker #1 ea 07/02/20 07/31/22 Rx levothyroxine 125 mcg tablet 125 mcg PO DAILYBB 08/04/20 07/31/22 History doxylamin 12.5 mg-PSE 10 mg-DM 20 1 packet PO MONTHLY PRN stomach 01/25/22 07/31/22 History mg-acetaminophen 650 mg oral pwdr problems pk (Gisella-[place] Plus Cold-Flu) Allergies Allergy/AdvReac Type Severity Reaction Status Date / Time acesulfame Allergy Intermediate Hives Verified 01/26/22 16:30 aspartame Allergy Intermediate Hives Verified 01/26/22 16:30 saccharin Allergy Intermediate Hives Verified 01/26/22 16:30 sucralose Allergy Intermediate Hives Verified 01/26/22 16:30 [From Splenda (sucralose)] Penicillins Allergy Mild Watery eyes Verified 01/25/22 06:26 hydrocodone [From Vicodin] AdvReac Severe Dizziness, Verified 01/25/22 06:26 heart racing, "hot" feeling Past Med/Surg History Medical History Anemia Anxiety Chronic rhinitis CKD (chronic kidney disease) CKD (chronic kidney disease), stage III Degenerative disc disease Lumbar Encounter for pre-operative examination Encounter for pre-operative examination History of anemia No known hx of blood transfusions Hypothyroidism Jaw clicking R>L, no locking Obesity Osteoarthritis Surgical History H/O: hysterectomy History of appendectomy History of section x1 History of cholecystectomy History of colonoscopy History of esophagogastroduodenoscopy (EGD) History of tooth extraction History of total knee replacement Left TKA (08/04/20): SAB at L3/4 x1 attempt + PNB at [facility]. No issues noted per post-op anesthesia progress note. Family History Mother Family history of diabetes mellitus Grandmother (Maternal) Family history of diabetes mellitus Other No family history of adverse response to anesthesia Social History Smoking Status: Former smoker Tobacco Type: Cigarettes Smoking End Date: quit 30 yrs ago; Second Hand Exposure: No; Hx Alcohol Use: Yes Alcohol type: beer and wine Alcohol Intake Frequency: Monthly or Less Hx Substance Use: No Preferred Language: Faroese Communication Ability: Effective Patient Registration Rep Required: No Beliefs That Will Affect Care: None marital status: Single Current Living Situation: Family Feels Safe at Home: Yes Assistive Devices: Walker Review of Systems A total of 10 systems reviewed and were otherwise negative Physical Exam Vital Signs Vital Signs - 24 hr 07/31/22 13:15 07/31/22 15:06 07/31/22 17:45 Temperature 36.2 C L Temperature Source Temporal Artery Scan Pulse Rate 77 Pulse Rate [Right Finger] 74 64 Respiratory Rate 17 16 16 Blood Pressure 168/76 H Blood Pressure [Right Arm] 197/93 H Blood Pressure Mean 106 Blood Pressure Mean [Right Arm] 127 Pulse Oximetry 97 94 94 Oxygen Delivery Method Room Air Room Air Sepsis Recent Fever Within 48 Hours No Sepsis New/Unexplained Change in Mental Status N/A Sepsis Action Taken by Nursing No Action Required VITAL SIGNS - Vital signs and nursing notes were reviewed. Stable and afebrile. GENERAL -71-year-old female appearing her stated age. The patient is sitting at the edge of the examination bed with her feet on the floor. She is fully flexed at the L-spine and in a bent position. Her upper extremity is over her knees. She otherwise communicates well with provider and answers questions appropriately. SKIN - Without rashes. No meningeal or petechial rash. The skin overlying the low back is unremarkable HEAD - NC/AT. EYES - Sclera anicteric. NECK - Neck with FROM. No C-spine tenderness. No nuchal rigidity. LUNGS - Chest wall symmetric without accessory muscle use, intercostals retractions, or central cyanosis. Normal vesicular breath sounds CTA B/L. No wheezes, rales, or rhonchi appreciated. CARDIAC - RRR with S1/S2. No murmur, rubs, or gallops appreciated. ABDOMEN - Abdominal contour normal without pulsations or visible masses. BS normoactive all four quadrants. No tenderness, palpable masses, h epatosplenomegaly, or ascites noted. EXTREMITIES - No clubbing or peripheral cyanosis. Decreased ability to plantar flex and extend actively to the right foot/ankle against resistance on the right compared to the left. Patient is warm and well-perfused throughout the bilateral lower extremities without neurovascular deficit. +5/5 strength noted in UE/LE bilaterally. MUSCULOSKELETALthere is reproducible tenderness palpation overlying the right superior gluteal region/right paraspinous musculature of the L-spine. No bony tenderness or step-off deformity. NEUROLOGIC - Cranial nerves II through XII grossly intact. PSYCH - A&Ox3 and cooperates fully with examiner. Pt is very pleasant and in teracts well with examiner. Course Administered Medications Miscellaneous (Remove Lidoderm Patch) 1 each N/A DAILY@2100 ABELARDO Stop: 08/30/22 20:59 Last Admin: 07/31/22 19:13 Dose: 1 each Documented By: EARLE Discontinued Medications Diazepam (Diazepam 2 Mg Tablet) 2 mg PO NOW STA Stop: 07/31/22 18:46 Last Admin: 07/31/22 19:13 Dose: 2 mg Documented By: EARLE Hydromorphone HCl (Hydromorphone Inj 0.5 Mg/0.5 Ml Syr) 0.5 mg IV NOW STA Stop: 07/31/22 14:15 Last Admin: 07/31/22 15:03 Dose: 0.5 mg Documented By: SHAHIDA Hydromorphone HCl (Hydromorphone Inj 0.5 Mg/0.5 Ml Syr) 0.5 mg IV NOW STA Stop: 07/31/22 16:39 Last Admin: 07/31/22 16:45 Dose: Not Given Documented By: SHAHIDA Ibuprofen (Ibuprofen 600 Mg Tab) 600 mg PO NOW STA Stop: 07/31/22 18:46 Last Admin: 07/31/22 19:13 Dose: 600 mg Documented By: EARLE Lidocaine (Lidocaine 5% 1 Patch) 1 patch TD NOW STA Stop: 07/31/22 14:15 Last Admin: 07/31/22 15:03 Dose: 1 patch Documented By: SHAHIDA Ondansetron HCl (Ondansetron Inj 2 Mg/Ml 2 Ml Vial) 4 mg IV NOW STA Stop: 07/31/22 14:15 Last Admin: 07/31/22 15:03 Dose: 4 mg Documented By: SHAHIDA Ondansetron HCl (Ondansetron Inj 2 Mg/Ml 2 Ml Vial) 4 mg IV NOW STA Stop: 07/31/22 16:44 Last Admin: 07/31/22 16:46 Dose: 4 mg Documented By: SHAHIDA Medical Decision Making Laboratory Data 07/31/22 14:57 07/31/22 14:57 Lab Results 07/31/22 07/31/22 07/31/22 Range/Units 14:57 14:57 17:18 WBC 11.81 H (4.8-10.8) K/ul RBC 4.00 L (4.20-5.40) M/uL Hgb 11.5 L (12.0-16.0) g/dl Hct 35.0 L (37.0-47.0) % MCV 87.5 (80.0-100.0) fL MCH 28.8 (25.0-34.0) pg MCHC 32.9 (32.0-36.0) g/dL RDW Std Deviation 42.5 (36.4-46.3) fL RDW Coeff of [place] 13.3 (11.5-14.5) % Plt Count 294 (130-400) K/uL MPV 10.2 (9.4-12.4) fL Immature Gran % (Auto) 0.3 % Neut % (Auto) 83.0 % Lymph % (Auto) 7.7 % Harding % (Auto) 8.6 % Eos % (Auto) 0.1 % Baso % (Auto) 0.3 % Neut # (Auto) 9.81 H (1.40-6.50) K/uL Lymph # (Auto) 0.91 L (1.2-3.4) K/uL Harding # (Auto) 1.02 H (0.11-0.59) K/uL Eos # (Auto) 0.01 (0-0.50) K/uL Baso # (Auto) 0.03 (0-0.2) K/uL Immature Gran # (Auto) 0.03 (0.01-0.20) K/uL Sodium 139 (136-145) mmol/L Potassium 3.9 (3.5-5.1) mmol/L Chloride 109 H (98-107) mmol/L Carbon Dioxide 22 (21-32) mmol/L Anion Gap 8 (3-11) BUN 25 H (6-23) mg/dl Creatinine 1.18 (0.6-1.2) mg/dl Est Cr Clr Drug Dosing Not Reportable Est GFR ( Amer) 54.1 ml/min Est GFR (Non-Af Amer) 46.7 ml/min BUN/Creatinine Ratio 21.2 H (10-20) Glucose 118 H (70-99(Fasting)) mg/dl Calcium 9.4 (8.6-10.3) mg/dl Total Bilirubin 0.6 (0.2-1.0) mg/dl AST 22 (13-39) U/L ALT 19 (7-52) U/L Alkaline Phosphatase 95 (34-104) U/L Total Protein 7.4 (6.0-8.3) gm/dl Albumin 4.2 (3.4-5.0) gm/dl Globulin 3.2 (2.5-4.0) gm/dl Albumin/Globulin Ratio 1.3 (0.9-2) SARS-CoV-2, RNA, NAAT NEGATIVE (NEGATIVE) Imaging Data Radiologist's Impression: Lumbar Spine MRI 07/31/22 14:16 MR lumbar spine wo con CLINICAL HISTORY: low back pain, weakness TECHNIQUE: Multiplanar sequences through the lumbar spine were obtained, without intravenous contrast. Comparison: None available at the time of this dictation. FINDINGS: Multilevel disc disease is seen. L1-L2: No significant abnormality. L2-L3: Broad-based posterior disc bulge is seen without significant canal stenosis. L3-L4: Broad-based posterior disc bulge, right greater than left, with mild right neural foraminal stenosis. L4-L5: Broad-based posterior disc bulge without significant neuroforaminal stenosis. L5-S1: No significant abnormality. The spinal ligaments are intact, without evidence of disruption or abnormal signal intensity. The spinal cord is normal in signal intensity and there is no evidence of cord contusion. There is no evidence of an extradural, intradural, extramedullary or intramedullary lesion. Visualized soft tissues are normal. IMPRESSION: Multilevel degenerative disc disease without significant canal stenosis. There is mild right neuroforaminal stenosis. ACT 112: Negative or not required by law. Electronically signed by: Gilbert Mendiola M.D. 07/31/2022 4:57 PM MDM Narrative Patient was seen and evaluated as above in room D09. Review was performed of triage nursing notes and vital signs. After obtaining a thorough history and physical examination the above work up was performed. Patient presents to us today for assessment of low back pain. Patient does appear to be in pain. Pain is mainly in the right gluteal region that radiates into her right leg. Options of care were discussed with the patient. IV access was established and labs were drawn. Noting the patient's subjective lower extremity weakness in the setting of significant low back pain to the point where the patient cannot ambulate or fully stand/straight and I do believe that MRI of the L-spine is warranted. Presentation is felt to be musculoskeletal in nature. No evidence of acute intra-abdominal process clinically. MRI of the L-spine as above. Multilevel degenerative disc disease without significant central canal stenosis. Mild right neuroforaminal stenosis. Patient presentation most consistent with that of lumbar radiculopathy. While here in the ED she was medicated with IV Dilaudid for pain which appears that she has received this in the past. Blood work reveals mild leukocytosis 11.81. Mild anemia noted with hemoglobin of 11.5. No emergent metabolic disturbance. Evidence of mild dehydration with BUN at 25. Mild hyperglycemia 118. At this time with the patient having significant pain on arrival with trouble ambulating secondary to pain I do believe that further evaluation and management is warranted in the inpatient setting. Upon return from MRI I did reevaluate the patient. I initially ordered additional IV analgesia however she notes her pain was okay at that time however she did note some nausea. Additional IV Zofran was ordered. Patient and [id number] at bedside amenable to plan of care to proceed with inpatient management. Case discussed with the hospitalist service. Please refer to further documentation regarding her stay. GCS: 15 In the evaluation and treatment of this patient the following differential diagnosis entertained: Fracture, dislocation, subluxation, cauda equina syndrome, AAA, diverticulitis, appendicitis, torsion, osteomyelitis, piriformis syndrome, strain, sprain, among others. Impression & Plan Acute right lumbar radiculopathy Discharge Plan Visit Data Chief Complaint: Back Injury/Pain Stated Complaint: SEVERE BACK PAIN SHOOTING DOWN LEG ED Provider: Roland Onofre ED Midlevel Provider: Prieto Harris Discharge Problem: Acute right lumbar radiculopathy Patient Disposition: Admitted As Inpatient Condition: Good Discharge Instructions Interventions: ED Discharge Assessment Last Done: 07/31/22 19:29
[2022-07-31 15:28] LABS: Basophils # (auto) 0.03 K/uL (0-0.2); Basophils % (auto) 0.3 %; Eosinophils # (auto) 0.01 K/uL (0-0.50); Eosinophils % (auto) 0.1 %; Hemoglobin 11.5 g/dl (12.0-16.0); Immature Granulocytes # (auto) 0.03 K/uL (0.01-0.20); Immature Granulocytes % (auto) 0.3 %; Lymphocytes # (auto) 0.91 K/uL (1.2-3.4); Lymphocytes % (auto) 7.7 %; Mean Corpuscular Hemoglobin 28.8 pg (25.0-34.0); Mean Corpuscular Hgb Conc 32.9 g/dL (32.0-36.0); Mean Corpuscular Volume 87.5 fL (80.0-100.0); Mean Platelet Volume 10.2 fL (9.4-12.4); Monocytes # (auto) 1.02 K/uL (0.11-0.59); Monocytes % (auto) 8.6 %; Neutrophils # (auto) 9.81 K/uL (1.40-6.50); Platelet Count 294 K/uL (130-400); RDW Coefficient of Variation 13.3 % (11.5-14.5); RDW Standard Deviation 42.5 fL (36.4-46.3); White Blood Count 11.81 K/ul (4.8-10.8)
[2022-07-31 15:38] LABS: Alanine Aminotransferase 19 U/L (7-52); Albumin Globulin Ratio 1.3 (0.9-2); Albumin Level 4.2 gm/dl (3.4-5.0); Alkaline Phosphatase 95 U/L (34-104); Anion Gap 8 (3-11); Aspartate Aminotransferase 22 U/L (13-39); BUN Creatinine Ratio 21.2 (10-20); Bilirubin,Total 0.6 mg/dl (0.2-1.0); Blood Urea Nitrogen 25 mg/dl (6-23); Calcium 9.4 mg/dl (8.6-10.3); Carbon Dioxide 22 mmol/L (21-32); Chloride 109 mmol/L (98-107); Est GFR (African American) 54.1 ml/min; Est GFR (Non-African American) 46.7 ml/min; Globulin 3.2 gm/dl (2.5-4.0); Glucose 118 mg/dl (70-99(Fasting)); Potassium 3.9 mmol/L (3.5-5.1); Sodium 139 mmol/L (136-145); Total Protein 7.4 gm/dl (6.0-8.3)
--- NOTE | 2022-07-31 16:58 | Magnetic Resonance Report ---
MR lumbar spine wo con CLINICAL HISTORY: low back pain, weakness TECHNIQUE: Multiplanar sequences through the lumbar spine were obtained, without intravenous contrast . Comparison: None available at the time of this dictation. FINDINGS: Multilevel disc disease is seen. L1-L2: No significant abnormality. L2-L3: Broad-based posterior disc bulge is seen without significant canal stenosis. L3-L4: Broad-based posterior disc bulge, right greater than left, with mild right neural foraminal st enosis. L4-L5: Broad-based posterior disc bulge without significant neuroforaminal stenosis. L5-S1: No significant abnormality. The spinal ligaments are intact, without evidence of disruption or abnormal signal intensity. The spi nal cord is normal in signal intensity and there is no evidence of cord contusion. There is no eviden ce of an extradural, intradural, extramedullary or intramedullary lesion. Visualized soft tissues are normal. IMPRESSION: Multilevel degenerative disc disease without significant canal stenosis. There is mild right neurofor aminal stenosis. ACT 112: Negative or not required by law. Electronically signed by: Gilbert Mendiola M.D. 07/31/2022 4:57 PM
--- NOTE | 2022-07-31 17:55 | History & Physical Report ---
Date of Service July 31, 2022 Assessment & Plan (1) Acute back pain: (2) Degenerative disc disease: Plan: She has disc disease present and clearly pain is exacerbated by recent travel by car to [place]. Will start NSAID/valium combination, add ice and MyoFlex topical. Lidocaine patch is not currently helping. Will ask ortho spine to evaluate, but suspect major component of pain is MSK in nature and will improve with symptom therapy. PT/OT (3) Ambulatory dysfunction: Plan: PT/OT, plan as above. (4) CKD (chronic kidney disease), stage III: Plan: chronic, at baseline. Monitor BMP while on scheduled NSAID therapy. (5) Hypothyroidism: Plan: chronic, stable. Cont levothyroxine per home regimen Lovenox Full Code Dispo-to home when able to walk. Julia Alston DO [facility] Hospitalist History of Present Illness Chief Complaint: back pain, acute, cannot walk Primary Care Provider: Ramsey Vera PA-C 71 yo F who reports rolling over and stretching in bed the wrong way on , 06/28. Shortly afterwards feeling a severe pain in her back but she was able to travel down to [place] on , 07/28, sitting in a car for 8-10 hours. She then returned yesterday and reports riding in a car for 6-7 hours, cramped in a little space on the way home. She has not been ambulate or sit up for very long 2/2 sever discomfort. 10+ pain on the right lower back with radiation down her right leg. Sharp. Allergies Allergy/AdvReac Type Severity Reaction Status Date / Time acesulfame Allergy Intermediate Hives Verified 01/26/22 16:30 aspartame Allergy Intermediate Hives Verified 01/26/22 16:30 saccharin Allergy Intermediate Hives Verified 01/26/22 16:30 sucralose Allergy Intermediate Hives Verified 01/26/22 16:30 [From Splenda (sucralose)] Penicillins Allergy Mild Watery eyes Verified 01/25/22 06:26 hydrocodone [From Vicodin] AdvReac Severe Dizziness, Verified 01/25/22 06:26 heart racing, "hot" feeling Home Medications Medication Instructions Recorded Confirmed Type cholestyramine (with sugar) 4 gram 1 ea PO HS 01/01/20 07/31/22 History oral powder diphenoxylate-atropine 2.5 1 tab PO Q6H PRN Diarrhea 01/01/20 07/31/22 History mg-0.025 mg tablet loratadine 10 mg tablet 10 mg PO DAILY PRN ALLERGY RELIEF 01/01/20 07/31/22 History multivitamin 1 tab PO QAM 01/01/20 07/31/22 History Wheeled Walker #1 ea 07/02/20 07/31/22 Rx levothyroxine 125 mcg tablet 125 mcg PO DAILYBB 08/04/20 07/31/22 History doxylamin 12.5 mg-PSE 10 mg-DM 20 1 packet PO MONTHLY PRN stomach 01/25/22 07/31/22 History mg-acetaminophen 650 mg oral pwdr problems pk (Gisella-[place] Plus Cold-Flu) Past Med/Surg History Medical History (Updated 07/31/22 @ 17:54 by Julia Alston DO) Anemia Anxiety Chronic rhinitis CKD (chronic kidney disease) CKD (chronic kidney disease), stage III Degenerative disc disease Lumbar Encounter for pre-operative examination Encounter for pre-operative examination History of anemia No known hx of blood transfusions Hypothyroidism Jaw clicking R>L, no locking Obesity Osteoarthritis Surgical History H/O: hysterectomy History of appendectomy History of section x1 History of cholecystectomy History of colonoscopy History of esophagogastroduodenoscopy (EGD) History of tooth extraction History of total knee replacement Left TKA (08/04/20): SAB at L3/4 x1 attempt + PNB at [facility]. No issues noted per post-op anesthesia progress note. Family History Mother Family history of diabetes mellitus Grandmother (Maternal) Family history of diabetes mellitus Other No family history of adverse response to anesthesia Social History (Updated 07/31/22 @ 18:55 by Julia Alston DO) Smoking Status: Former smoker Tobacco Type: Cigarettes Second Hand Exposure: No; Hx Alcohol Use: Yes Alcohol type: beer and wine Alcohol Intake Frequency: Monthly or Less Hx Substance Use: No Preferred Language: Rwandan Communication Ability: Effective Location Analyst Required: No Beliefs That Will Affect Care: None marital status: Single Current Living Situation: Family Feels Safe at Home: Yes Assistive Devices: Walker Review of Systems Review of Systems: All systems were reviewed and negative except as indicated on HPI above. Physical Exam Physical Exam: CONSTITUTIONAL: WNWD, vitals as above, generally ill-appearing with pain, uncomfortable and bending forward at the waist. EYES: normal conjunctivae, no scleral icterus ENT: external ear and nose normal,MMM NECK: trachea midline, RESPIRATORY: clear to auscultation bilaterally, no crackles, rales or wheezes, normal respiratory effort CARDIOVASCULAR: regular rate and rhythm, S1 and 2 heard without murmurs, gallops or rubs, no JVD, no peripheral edema CHEST: inspection of chest was normal MUSCULOSKELETAL: strength 5/5 throughout, head NC/AT, ,-SLR test bilaterally SKIN: warm and dry NEUROLOGIC: patellar DTRs right 1+, left knee 3+,Achilles DTR (S1) right 1+, S1 left 2+. PERRL, EOMI, no facial palsy, no dysarthria. Touch, pain and proprioception normal. CN 2-12 grossly intact, no sensory deficit, normal cognition, normal speech, no tremor PSYCHIATRIC: alert cooperative and oriented to person, place and time. Euthymic mood, makes good eye contact, language grossly intact, recent and remote memory grossly intact. Results & Data Results & Data Vital Signs (Past 12 Hours) Vital Signs Temp Pulse Pulse Resp BP BP Pulse Ox 07/31/22 17:45 64 16 197/93 H 94 07/31/22 15:06 74 16 94 07/31/22 13:15 36.2 C L 77 17 168/76 H 97 O2 Del Method 07/31/22 17:45 07/31/22 15:06 Room Air 07/31/22 13:15 Room Air Laboratory Results Short CBC 07/31/22 Range/Units 14:57 WBC 11.81 H (4.8-10.8) K/ul Hgb 11.5 L (12.0-16.0) g/dl Hct 35.0 L (37.0-47.0) % Plt Count 294 (130-400) K/uL BMP 07/31/22 14:57 Sodium 139 Potassium 3.9 Chloride 109 H Carbon Dioxide 22 BUN 25 H Creatinine 1.18 Glucose 118 H Calcium 9.4 Liver Function 07/31/22 Range/Units 14:57 Total Bilirubin 0.6 (0.2-1.0) mg/dl AST 22 (13-39) U/L ALT 19 (7-52) U/L Alkaline Phosphatase 95 (34-104) U/L Albumin 4.2 (3.4-5.0) gm/dl Diagnostic Findings Lumbar Spine MRI 07/31/22 14:16 MR lumbar spine wo con CLINICAL HISTORY: low back pain, weakness TECHNIQUE: Multiplanar sequences through the lumbar spine were obtained, without intravenous contrast. Comparison: None available at the time of this dictation. FINDINGS: Multilevel disc disease is seen. L1-L2: No significant abnormality. L2-L3: Broad-based posterior disc bulge is seen without significant canal stenosis. L3-L4: Broad-based posterior disc bulge, right greater than left, with mild right neural foraminal stenosis. L4-L5: Broad-based posterior disc bulge without significant neuroforaminal stenosis. L5-S1: No significant abnormality. The spinal ligaments are intact, without evidence of disruption or abnormal signal intensity. The spinal cord is normal in signal intensity and there is no evidence of cord contusion. There is no evidence of an extradural, intradural, extramedullary or intramedullary lesion. Visualized soft tissues are normal. IMPRESSION: Multilevel degenerative disc disease without significant canal stenosis. There is mild right neuroforaminal stenosis. ACT 112: Negative or not required by law. Electronically signed by: Gilbert Mendiola M.D. 07/31/2022 4:57 PM Code Status & VTE Plan VTE Prophylaxis Plan VTE Prophylaxis will be ordered: Yes
[2022-07-31] MEDS ORDERED: IBUPROFEN 600 MG TAB PO STA (18:45)
[2022-07-31] MEDS ORDERED: diazePAM 2 MG TABLET PO STA (18:45)
[2022-07-31] MEDS ORDERED: PROMETHAZINE HCL 25 MG TAB PO PRN (19:58)
[2022-07-31] MEDS: diazePAM 2 MG TABLET PO SCH (21:13)
[2022-07-31] MEDS: CHOLESTYRAMINE LIGHT 4 GM PKT PO SCH (22:36)
[2022-07-31] MEDS: TROLAMINE SALICYLATE 10% CRM 255 APPLN/85 GM TUBE EXT SCH (22:38)
[2022-08-01] MEDS ORDERED: traMADol HCL 50 MG TABLET PO STA (01:00)
[2022-08-01] MEDS: IBUPROFEN 600 MG TAB PO SCH ×3 (05:41→21:39)
[2022-08-01] MEDS: LEVOTHYROXINE SODIUM 125 MCG TABLET PO SCH (05:42)
[2022-08-01 06:24] LABS: Hematocrit (blood only) 36.5 % (37.0-47.0); Hemoglobin 11.6 g/dl (12.0-16.0); Mean Corpuscular Hemoglobin 28.2 pg (25.0-34.0); Mean Corpuscular Hgb Conc 31.8 g/dL (32.0-36.0); Mean Corpuscular Volume 88.8 fL (80.0-100.0); Platelet Count 275 K/uL (130-400); RDW Coefficient of Variation 13.2 % (11.5-14.5); Red Blood Count 4.11 M/uL (4.20-5.40); White Blood Count 7.45 K/ul (4.8-10.8)
[2022-08-01 06:32] LABS: BUN Creatinine Ratio 20.2 (10-20); Calcium 9.3 mg/dl (8.6-10.3); Est GFR (African American) 59.6 ml/min; Est GFR (Non-African American) 51.4 ml/min; Potassium 3.7 mmol/L (3.5-5.1)
[2022-08-01] MEDS: diazePAM 2 MG TABLET PO SCH ×2 (08:21→21:38)
[2022-08-01] MEDS: TROLAMINE SALICYLATE 10% CRM 255 APPLN/85 GM TUBE EXT SCH ×2 (08:22→21:41)
--- NOTE | 2022-08-01 09:39 | Orthopedic Consultation ---
Date of Consultation August 01, 2022 Assessment & Plan (1) Lumbar disc herniation with radiculopathy: MRI lumbar spine demonstrates evidence of a herniated fragment L3-L4 occupying the right neural foramen. This is clearly contributing to her L3 radiculopathy. My interpretation is different than the radiologist. Plan at this time I would like to consult interventional pain management as to see if epidural injections can calm her pain down and avoid surgical invention. Ultimately she would require discectomy of L3-L4 if she fails to improve. Patient understands and agrees. History of Present Illness Reason for Consultation: Right leg pain Attending Physician: Julia Alston, DO History of Present Illness This is a very pleasant 71-year-old female who presents with severe right leg pain. She states it began last Monday. She denies any specific trauma fall or event. Left lower extremities asymptomatic. Her pattern rates in the buttock radiating around into the anterior lateral thigh. It stops at around the knee. The knee is quite painful. It does affect her ability to stand and ambulate as it gives out on her. Allergies Allergy/AdvReac Type Severity Reaction Status Date / Time acesulfame Allergy Intermediate Hives Verified 01/26/22 16:30 aspartame Allergy Intermediate Hives Verified 01/26/22 16:30 saccharin Allergy Intermediate Hives Verified 01/26/22 16:30 sucralose Allergy Intermediate Hives Verified 01/26/22 16:30 [From Splenda (sucralose)] Penicillins Allergy Mild Watery eyes Verified 01/25/22 06:26 hydrocodone [From Vicodin] AdvReac Severe Dizziness, Verified 01/25/22 06:26 heart racing, "hot" feeling Home Medications Medication Instructions Recorded Confirmed Type cholestyramine (with sugar) 4 gram 1 ea PO HS 01/01/20 07/31/22 History oral powder diphenoxylate-atropine 2.5 1 tab PO Q6H PRN Diarrhea 01/01/20 07/31/22 History mg-0.025 mg tablet loratadine 10 mg tablet 10 mg PO DAILY PRN ALLERGY RELIEF 01/01/20 07/31/22 History multivitamin 1 tab PO QAM 01/01/20 07/31/22 History Wheeled Walker #1 ea 07/02/20 07/31/22 Rx levothyroxine 125 mcg tablet 125 mcg PO DAILYBB 08/04/20 07/31/22 History doxylamin 12.5 mg-PSE 10 mg-DM 20 1 packet PO MONTHLY PRN stomach 01/25/22 07/31/22 History mg-acetaminophen 650 mg oral pwdr problems pk (Gisella-[place] Plus Cold-Flu) Patient History Medical History Anemia Anxiety Chronic rhinitis CKD (chronic kidney disease) CKD (chronic kidney disease), stage III Degenerative disc disease Lumbar Encounter for pre-operative examination Encounter for pre-operative examination History of anemia No known hx of blood transfusions Hypothyroidism Jaw clicking R>L, no locking Obesity Osteoarthritis Surgical History H/O: hysterectomy History of appendectomy History of section x1 History of cholecystectomy History of colonoscopy History of esophagogastroduodenoscopy (EGD) History of tooth extraction History of total knee replacement Left TKA (08/04/20): SAB at L3/4 x1 attempt + PNB at [facility]. No issues noted per post-op anesthesia progress note. Family History Mother Family history of diabetes mellitus Grandmother (Maternal) Family history of diabetes mellitus Other No family history of adverse response to anesthesia Social History Smoking Status: Former smoker Tobacco Type: Cigarettes Smoking End Date: quit 30 yrs ago; Second Hand Exposure: No; Do You Dip or Chew Tobacco: No; Tobacco Cessation Education Requested by Patient: No Hx Alcohol Use: Yes Alcohol type: wine Alcohol Intake Frequency: Monthly or Less Hx Substance Use: No Preferred Language: Sierra Leonean Communication Ability: Effective Front End Technician Required: No Beliefs That Will Affect Care: None marital status: Single Current Living Situation: Alone Other Information That Helps Us Care for You: No Feels Safe at Home: Yes Safety Concerns: Feels Safe At This Time Assistive Devices: Cane and Walker Assistive Devices Comment: right knee surgery 6 months ago uses walker occasionaly Physical Exam Physical Exam: On exam patient is sitting up at the bedside. She is most comfortable plan bending forward lying supine reproduces her radiculopathy. She exhibits a 4/5 right quadriceps compared to 5/5 on the left she has plus 5 out of 5 bilateral plantarflexion dorsiflexion. Results & Data Vital Signs (Past 12 Hours) Vital Signs Temp Pulse Resp BP Pulse Ox O2 Del Method 08/01/22 08:00 36.4 C L 61 17 157/81 H 99 Room Air
--- NOTE | 2022-08-01 10:12 | Hospitalist Progress Note ---
Date of Service August 01, 2022 Assessment & Plan (1) Acute back pain: (2) Degenerative disc disease: Plan: She has disc disease present and clearly pain is exacerbated by recent travel by car to [place]. Will NSAID/valium combination, ice and MyoFlex topical. Lidocaine patch was not helping. Ortho spine feels this pain is discogenic in nature and is requesting PM for injection therapy. Consideration may be given to spinal surgery at some point if that is not successful. PT/OT (3) Ambulatory dysfunction: Plan: PT/OT, plan as above. (4) CKD (chronic kidney disease), stage III: Plan: chronic, at baseline. Monitor BMP while on scheduled NSAID therapy. (5) Hypothyroidism: Plan: chronic, stable. Cont levothyroxine per home regimen Lovenox Full Code Dispo-to home when able to walk. Julia Alston DO [facility] Hospitalist Admission and Anticipated Discharge Date Admission Date: July 31, 2022 Subjective 71 yo F presents with acute back pain still unable to walk and having severe aviles she reports vomiting in response to tramadol overnight and dilaudid yesterday sensitive to hydrocodone in the past but states that valium/ibuprofen is helping her pain and she also was able to tolerate oxycodone post operatively in the past. still awaiting pain management consult per ortho spine, may need too consider surgery, but would like to conservatively try injection therapy first. Review of Systems Review of Systems: All systems were reviewed and negative except as indicated on HPI above. Physical Exam Physical Exam: CONSTITUTIONAL: WNWD, vitals as above, generally ill-appearing with pain, uncomfortable and bending forward at the waist. EYES: normal conjunctivae, no scleral icterus ENT: external ear and nose normal,MMM NECK: trachea midline, RESPIRATORY: clear to auscultation bilaterally, no crackles, rales or wheezes, normal respiratory effort CARDIOVASCULAR: regular rate and rhythm, S1 and 2 heard without murmurs, gallops or rubs, no JVD, no peripheral edema CHEST: inspection of chest was normal MUSCULOSKELETAL: wasn't able to complete this test 2/2 pain -"I need to move around!" SKIN: warm and dry NEUROLOGIC: patellar DTRs right 1+, left knee 3+. PERRL, EOMI, no facial palsy, no dysarthria. Touch, pain and proprioception normal. CN 2-12 grossly intact, no sensory deficit, normal cognition, normal speech, no tremor PSYCHIATRIC: alert cooperative and oriented to person, place and time. Euthymic mood, makes good eye contact, language grossly intact, recent and remote memory grossly intact. Results & Data Results & Data Vital Signs (Past 12 Hours) Vital Signs Temp Pulse Resp BP Pulse Ox O2 Del Method 08/01/22 08:00 36.4 C L 61 17 157/81 H 99 Room Air Laboratory Results Short CBC 07/31/22 08/01/22 Range/Units 14:57 05:26 WBC 11.81 H 7.45 (4.8-10.8) K/ul Hgb 11.5 L 11.6 L (12.0-16.0) g/dl Hct 35.0 L 36.5 L (37.0-47.0) % Plt Count 294 275 (130-400) K/uL BMP 07/31/22 08/01/22 14:57 05:26 Sodium 139 139 Potassium 3.9 3.7 Chloride 109 H 108 H Carbon Dioxide 22 25 BUN 25 H 22 Creatinine 1.18 1.09 Glucose 118 H 125 H Calcium 9.4 9.3 Liver Function 07/31/22 Range/Units 14:57 Total Bilirubin 0.6 (0.2-1.0) mg/dl AST 22 (13-39) U/L ALT 19 (7-52) U/L Alkaline Phosphatase 95 (34-104) U/L Albumin 4.2 (3.4-5.0) gm/dl Medications Administered Current Inpatient Medications Acetaminophen (Acetaminophen 325 Mg Tab) 650 mg PO Q4H PRN PRN Reason: Pain or Fever Stop: 08/30/22 19:57 Cholestyramine Resin (Cholestyramine Light 4 Gm Pkt) 4 gm PO HS ABELARDO Stop: 08/30/22 20:59 Last Admin: 07/31/22 22:36 Dose: 4 gm Diazepam (Diazepam 2 Mg Tablet) 2 mg PO BID ABELARDO Stop: 08/30/22 20:59 Last Admin: 08/01/22 08:21 Dose: 2 mg Ibuprofen (Ibuprofen 600 Mg Tab) 600 mg PO Q8H ABELARDO Stop: 08/30/22 20:29 Last Admin: 08/01/22 05:41 Dose: 600 mg Levothyroxine Sodium (Levothyroxine Sodium 125 Mcg Tablet) 125 mcg PO DAILYBB [facility] Stop: 08/31/22 06:29 Last Admin: 08/01/22 05:42 Dose: 125 mcg Miscellaneous (Remove Lidoderm Patch) 1 each N/A DAILY@2100 [facility] Stop: 08/30/22 20:59 Last Admin: 07/31/22 19:13 Dose: 1 each Promethazine HCl (Promethazine Hcl 25 Mg Tab) 25 mg PO Q6H PRN PRN Reason: Nausea And Vomiting Stop: 08/30/22 19:57 Trolamine Salicylate (Trolamine Salicylate 10% Crm 255 Appln/85 Gm Tube) 1 appln EXT BID [facility] Stop: 08/30/22 20:59 Last Admin: 08/01/22 08:22 Dose: 1 appln
[2022-08-01] MEDS ORDERED: diazePAM 2 MG TABLET PO STA (14:42)
[2022-08-01] MEDS: oxyCODONE HCL IR 5 MG TAB (IMMEDIATE RELEASE) PO PRN ×2 (16:21→22:52)
[2022-08-01] MEDS: ACETAMINOPHEN 325 MG TAB PO PRN ×2 (16:57→22:51)
[2022-08-01] MEDS: CHOLESTYRAMINE LIGHT 4 GM PKT PO SCH (21:39)
[2022-08-02] MEDS: LEVOTHYROXINE SODIUM 125 MCG TABLET PO SCH (05:33)
[2022-08-02] MEDS: IBUPROFEN 600 MG TAB PO SCH ×3 (05:33→20:52)
[2022-08-02] MEDS: oxyCODONE HCL IR 5 MG TAB (IMMEDIATE RELEASE) PO PRN ×4 (05:34→23:29)
[2022-08-02] MEDS: diazePAM 2 MG TABLET PO SCH (08:14)
[2022-08-02] MEDS: TROLAMINE SALICYLATE 10% CRM 255 APPLN/85 GM TUBE EXT SCH ×2 (08:14→20:53)
--- NOTE | 2022-08-02 08:35 | Pain Management Consultation ---
Date of Consultation August 02, 2022 Assessment & Plan (1) Acute right lumbar radiculopathy: Plan 1. I have initiated the patient on a Medrol dose cullen. 2. Added Baclofen 10mg TID for muscle spasm as she has previously taken without any side effect. Valium will be held. 3. Continue Oxycodone 5mg x 6 hours PRN pain 4. Continue Ibuprofen and Lidocaine patch 5. Would hold on lumbar epidural steroid injection for now as pain does appear mostly myofascial in nature. If not improved after Medrol Cullen then could consider an epidural injection on an outpatient basis. 6. Recommend physical therapy Thank you for the consultation. History of Present Illness Reason for Consultation: Back pain Attending Physician: Julia Alston, DO History of Present Illness This is a 71-year-old female that has been admitted to the [facility] for acute lumbar radiculopathy. Patient states that last week she was sleeping and felt a sudden pain along the low back when she was making positional change. Since that time she has been experiencing a deep aching, spasming sensation along the right lumbar region and an aching, heaviness along the right anterior thigh. She was in a car driving to [place] and [facility] which significantly worsen the pain. No previous ED treatment. No previous history of lumbar surgery. She feels like the right leg is weak and may give out on her. Pain is improved with back flexion and worsened with extension. She states that she is unable to lay supine due to the pain. No bowel/bladder incontinence, saddle anesthesia, foot drop, falls. Allergies Allergy/AdvReac Type Severity Reaction Status Date / Time acesulfame Allergy Intermediate Hives Verified 01/26/22 16:30 aspartame Allergy Intermediate Hives Verified 01/26/22 16:30 saccharin Allergy Intermediate Hives Verified 01/26/22 16:30 sucralose Allergy Intermediate Hives Verified 01/26/22 16:30 [From Splenda (sucralose)] Penicillins Allergy Mild Watery eyes Verified 01/25/22 06:26 hydrocodone [From Vicodin] AdvReac Severe Dizziness, Verified 01/25/22 06:26 heart racing, "hot" feeling Home Medications Medication Instructions Recorded Confirmed Type cholestyramine (with sugar) 4 gram 1 ea PO HS 01/01/20 07/31/22 History oral powder diphenoxylate-atropine 2.5 1 tab PO Q6H PRN Diarrhea 01/01/20 07/31/22 History mg-0.025 mg tablet loratadine 10 mg tablet 10 mg PO DAILY PRN ALLERGY RELIEF 01/01/20 07/31/22 History multivitamin 1 tab PO QAM 01/01/20 07/31/22 History Wheeled Walker #1 ea 07/02/20 07/31/22 Rx levothyroxine 125 mcg tablet 125 mcg PO DAILYBB 08/04/20 07/31/22 History doxylamin 12.5 mg-PSE 10 mg-DM 20 1 packet PO MONTHLY PRN stomach 01/25/22 07/31/22 History mg-acetaminophen 650 mg oral pwdr problems pk (Gisella-[place] Plus Cold-Flu) Patient History Medical History Anemia Anxiety Chronic rhinitis CKD (chronic kidney disease) CKD (chronic kidney disease), stage III Degenerative disc disease Lumbar Encounter for pre-operative examination Encounter for pre-operative examination History of anemia No known hx of blood transfusions Hypothyroidism Jaw clicking R>L, no locking Obesity Osteoarthritis Surgical History H/O: hysterectomy History of appendectomy History of section x1 History of cholecystectomy History of colonoscopy History of esophagogastroduodenoscopy (EGD) History of tooth extraction History of total knee replacement Left TKA (08/04/20): SAB at L3/4 x1 attempt + PNB at [facility]. No issues noted per post-op anesthesia progress note. Family History Mother Family history of diabetes mellitus Grandmother (Maternal) Family history of diabetes mellitus Other No family history of adverse response to anesthesia Social History Smoking Status: Former smoker Tobacco Type: Cigarettes Smoking End Date: quit 30 yrs ago; Second Hand Exposure: No; Do You Dip or Chew Tobacco: No; Tobacco Cessation Education Requested by Patient: No Hx Alcohol Use: Yes Alcohol type: wine Alcohol Intake Frequency: Monthly or Less Hx Substance Use: No Preferred Language: Grenadian Communication Ability: Effective Manager Food Safety Required: No Beliefs That Will Affect Care: None marital status: Single Current Living Situation: Alone Other Information That Helps Us Care for You: No Feels Safe at Home: Yes Safety Concerns: Feels Safe At This Time Assistive Devices: Cane and Walker Assistive Devices Comment: right knee surgery 6 months ago uses walker occasionaly Physical Exam Physical Exam: GENERAL: This is a 71 year old female that is sitting in the hospital bed hunched forward. Does not appear in acute distress. HEAD/FACE: Normocephalic and atraumatic. EYES: No drainage or conjunctival injection. ENT: Nose without bleeding or discharge. Oral mucosa moist. NECK: Full ROM without apparent pain. No swelling or masses noted. RESPIRATORY: Patient with unlabored breathing. No signs of respiratory distress. CHEST/AXILLA: Chest movement symmetrical. No deformities noted. BACK: Moves without difficulty. There is no midline, facet joint, or SI joint tenderness. There is mild tenderness along the right paravertebral muscle around L3. SKIN: [place], warm and dry. No rash noted. MS/EXTREMITY: 5/5 strength of lower extremities. Negative straight leg raise. NEURO: Alert and appears oriented. Speech is fluent. Cranial Nerves are grossly intact. PSYCH: Alert, pleasant, affect is calm Results (Pain Clinic) Diagnostic Review MRI Findings: MR lumbar spine wo con CLINICAL HISTORY: low back pain, weakness TECHNIQUE: Multiplanar sequences through the lumbar spine were obtained, without intravenous contrast. Comparison: None available at the time of this dictation. FINDINGS: Multilevel disc disease is seen. L1-L2: No significant abnormality. L2-L3: Broad-based posterior disc bulge is seen without significant canal stenosis. L3-L4: Broad-based posterior disc bulge, right greater than left, with mild right neural foraminal stenosis. L4-L5: Broad-based posterior disc bulge without significant neuroforaminal s tenosis. L5-S1: No significant abnormality. The spinal ligaments are intact, without evidence of disruption or abnormal signal intensity. The spinal cord is normal in signal intensity and there is no evidence of cord contusion. There is no evidence of an extradural, intradural, extramedullary or intramedullary lesion. Visualized soft tissues are normal. IMPRESSION: Multilevel degenerative disc disease without significant canal stenosis. There is mild right neuroforaminal stenosis. ACT 112: Negative or not required by law. Electronically signed by: Gilbert Mendiola M.D. 07/31/2022 4:57 PM
[2022-08-02] MEDS ORDERED: methylPREDNISolone 4 MG TAB, 6 DAY TAPER PO SCH (08:45)
[2022-08-02] MEDS: BACLOFEN 10 MG TAB PO SCH ×3 (08:47→20:52)
[2022-08-02] MEDS: methylPREDNISolone 4 MG TAB PO SCH ×3 (12:22→20:52)
--- NOTE | 2022-08-02 17:12 | Hospitalist Progress Note ---
Date of Service August 02, 2022 Assessment & Plan (1) Acute back pain: (2) Ambulatory dysfunction: (3) Degenerative disc disease: Plan: Disc disease with pain recently exacerbated by long car travel Lumbar spine MRI IMPRESSION: Multilevel degenerative disc disease without significant canal stenosis. There is mild right neuroforaminal stenosis. Evaluated by spine Ortho --recommending pain management consult Pain management recommendations-added Medrol Dosepak and baclofen 10 mg 3 times daily; continue ibuprofen 600 mg q8h, oxycodone 5 mg every 6 hours as needed Holding on steroid injection at this time. PT/OT (4) CKD (chronic kidney disease), stage III: Plan: Chronic, at baseline. Monitor BMP while on scheduled NSAID therapy. (5) Hypothyroidism: Plan: Chronic, stable. Cont levothyroxine per home regimen DVT PROPHYLAXIS SQ Lovenox I spent a total of 30 minutes coordinating, documenting, and providing care for this patient excluding time spent in the performance of separately billed services. This included personally reviewing all current laboratories and imaging studies, medication reconciliation, outpatient chart review, and discussion with specialists. Admission and Anticipated Discharge Date Admission Date: July 31, 2022 Subjective Follow-up for intractable back pain. Patient seen and examined. Reporting moderate pain this AM. Evaluated by pain management, recommendations noted. Denies weakness, numbness, tingling to lower extremities. No bowel or bladder dysfunction. Denies chest pain or shortness of breath. No abdominal pain or nausea. Physical Exam Constitutional: WD/WN, vitals as above Respiratory: normal respiratory effort, lungs clear to auscultation Cardiovascular: Rate/Rhythm: regular rate and regular rhythm Vessels: normal peripheral pulses Extremities: no edema Gastrointestinal (Abdomen): Percussion/Palpation: abdomen soft; abdomen nontender Musculoskeletal: no cyanosis or clubbing, extremities motor strength 5/5 Paraspinal tenderness lower right back Skin: no rashes, warm and dry Neurologic: no focal motor deficits Psychiatric: A+Ox3, euthymic affect Results & Data Results & Data Vital Signs (Past 12 Hours) Vital Signs Temp Pulse Resp BP Pulse Ox O2 Del Method 08/02/22 14:44 36.6 C 67 16 142/75 H 98 Room Air 08/02/22 07:21 36.4 C L 81 16 111/65 100 Room Air
[2022-08-02] MEDS: CHOLESTYRAMINE LIGHT 4 GM PKT PO SCH (20:52)
[2022-08-03] MEDS ORDERED: MoRPHine SULFATE 4 MG/ML 1 ML CARP\\VIAL IV STA (05:08)
[2022-08-03] MEDS: ACETAMINOPHEN 325 MG TAB PO PRN ×3 (05:10→20:45)
[2022-08-03] MEDS: oxyCODONE HCL IR 5 MG TAB (IMMEDIATE RELEASE) PO PRN ×3 (05:40→19:13)
[2022-08-03] MEDS: LEVOTHYROXINE SODIUM 125 MCG TABLET PO SCH (05:44)
[2022-08-03] MEDS: IBUPROFEN 600 MG TAB PO SCH (05:44)
[2022-08-03] MEDS: methylPREDNISolone 4 MG TAB PO SCH ×4 (05:44→18:20)
[2022-08-03] MEDS: BACLOFEN 10 MG TAB PO SCH ×3 (08:09→20:45)
[2022-08-03] MEDS: TROLAMINE SALICYLATE 10% CRM 255 APPLN/85 GM TUBE EXT SCH ×2 (08:09→20:45)
[2022-08-03 08:57] LABS: Calcium 9.2 mg/dl (8.6-10.3); Creatinine Clr Calc Pharmacy 39.1 ml/min; Est GFR (African American) 35.6 ml/min; Est GFR (Non-African American) 30.7 ml/min; Potassium 4.5 mmol/L (3.5-5.1)
[2022-08-03] MEDS: LACTATED RINGER'S 1,000 ML IV SCH ×2 (10:24→23:09)
[2022-08-03] MEDS: DOCUSATE SODIUM/SENNA 50/8.6MG TAB PO SCH (12:40)
--- NOTE | 2022-08-03 15:47 | Hospitalist Progress Note ---
Date of Service August 03, 2022 Assessment & Plan (1) Acute back pain: (2) Ambulatory dysfunction: (3) Degenerative disc disease: Plan: Disc disease with pain recently exacerbated by long car travel Lumbar spine MRI IMPRESSION: Multilevel degenerative disc disease without significant canal stenosis. There is mild right neuroforaminal stenosis. Evaluated by spine Ortho --recommending pain management consult Pain management recommendations- Medrol Dosepak and baclofen 10 mg 3 times daily; oxycodone 5 mg every 6 hours as needed. Pain improved with addition of Medrol and baclofen. Will need to discontinue scheduled ibuprofen due to GENE. Holding on steroid injection at this time. PT/OT - recommending outpatient PT (4) GENE (acute kidney injury): (5) CKD (chronic kidney disease), stage III: Plan: Baseline creat ~ 0.8 - 1.1 Creat up to 1.6 today Likely due to NSAIDs -- d/c scheduled NSAID, start IVF Follow renal functions in a.m. (6) Hypothyroidism: Plan: Chronic, stable. Cont levothyroxine per home regimen DVT PROPHYLAXIS SQ Lovenox Admission and Anticipated Discharge Date Admission Date: July 31, 2022 Supervising Physician Co-Signing Physician Notes Patient seen and examined at bedside as a follow-up of acute back pain and ambulatory dysfunction, today developed acute kidney injury on CKD stage III. Patient started on IV fluid. Patient reports pain getting better. On examination, patient on room air, NAD, heart/lung/abdomen fairly WNL. Rest of the examination as above. I have seen and examined the patient and have discussed the case with the provider above. I agree with the assessment and plan as stated. Subjective Follow-up for intractable back pain. Patient seen and examined. Reports improvement in pain with Medrol pack and baclofen. Denies numbness, tingling, weakness to lower extremities. Denies chest pain and shortness of breath. + Constipation, no abdominal pain or nausea. Urinating without difficulty. Physical Exam Constitutional: WD/WN, vitals as above no acute distress Sitting up in the chair ENMT: external ear and nose normal, oropharynx normal Respiratory: normal respiratory effort, lungs clear to auscultation Cardiovascular: Rate/Rhythm: regular rate and regular rhythm Vessels: [place] peripheral pulses Extremities: no edema Gastrointestinal (Abdomen): Percussion/Palpation: abdomen soft; abdomen non tender Musculoskeletal: Paraspinal tenderness right lower back Skin: no rashes, warm and dry Neurologic: no focal motor deficits Psychiatric: A+Ox3, euthymic affect Results & Data Results & Data Vital Signs (Past 12 Hours) Vital Signs Temp Pulse Resp BP Pulse Ox O2 Del Method 08/03/22 14:19 70 16 152/80 H 96 Room Air 08/03/22 07:11 36.3 C L 60 16 165/82 H 99 Room Air Laboratory Results [facility] 08/03/22 06:38 Sodium 138 Potassium 4.5 Chloride 107 Carbon Dioxide 24 BUN 40 H Creatinine 1.67 H Glucose 125 H Calcium 9.2
[2022-08-03] MEDS: CHOLESTYRAMINE LIGHT 4 GM PKT PO SCH (20:45)
[2022-08-03] MEDS ORDERED: LIDOCAINE 5% 1 PATCH TD SCH (21:00)
[2022-08-03] MEDS ORDERED: methylPREDNISolone 4 MG TAB PO SCH (21:00)
[2022-08-03] MEDS ORDERED: HYDROmorphone INJ 0.5 MG/0.5 ML SYR IV PRN (22:56)
[2022-08-04] MEDS: ACETAMINOPHEN 325 MG TAB PO PRN (00:17)
[2022-08-04] MEDS: oxyCODONE HCL IR 5 MG TAB (IMMEDIATE RELEASE) PO PRN ×3 (00:18→13:22)
[2022-08-04] MEDS: LEVOTHYROXINE SODIUM 125 MCG TABLET PO SCH (06:32)
[2022-08-04] MEDS: methylPREDNISolone 4 MG TAB PO SCH ×2 (06:34→13:21)
[2022-08-04] MEDS: BACLOFEN 10 MG TAB PO SCH ×2 (08:33→13:22)
[2022-08-04] MEDS: DOCUSATE SODIUM/SENNA 50/8.6MG TAB PO SCH (08:33)
[2022-08-04 08:34] LABS: BUN Creatinine Ratio 26.7 (10-20); Calcium 9.1 mg/dl (8.6-10.3); Creatinine Clr Calc Pharmacy 62.3 ml/min; Est GFR (African American) 62.3 ml/min; Est GFR (Non-African American) 53.8 ml/min; Potassium 4.7 mmol/L (3.5-5.1)
[2022-08-04] MEDS: TROLAMINE SALICYLATE 10% CRM 255 APPLN/85 GM TUBE EXT SCH (08:37)
[2022-08-04] MEDS ORDERED: amLODIPine BESYLATE 5 MG TAB PO SCH (09:00)
--- NOTE | 2022-08-04 16:44 | Discharge Summary ---
Date of Service August 04, 2022 Admission HPI Per Admitting Provider 71 yo F who reports rolling over and stretching in bed the wrong way on 06/28. Shortly afterwards feeling a severe pain in her back but she was able to travel down to [place] on , 07/28, sitting in a car for 8-10 hours. She then returned yesterday and reports riding in a car for 6-7 hours, cramped in a little space on the way home. She has not been ambulate or sit up for very long 2/2 sever discomfort. 10+ pain on the right lower back with radiation down her right leg. Sharp. Admission Exam Per Admitting Provider CONSTITUTIONAL: WNWD, vitals as above, generally ill-appearing with pain, uncomfortable and bending forward at the waist. EYES: normal conjunctivae, no scleral icterus ENT: external ear and nose normal,MMM NECK: trachea midline, RESPIRATORY: clear to auscultation bilaterally, no crackles, rales or wheezes, normal respiratory effort CARDIOVASCULAR: regular rate and rhythm, S1 and 2 heard without murmurs, gallops or rubs, no JVD, no peripheral edema CHEST: inspection of chest was normal MUSCULOSKELETAL: strength 5/5 throughout, head NC/AT, ,-SLR test bilaterally SKIN: warm and dry NEUROLOGIC: patellar DTRs right 1+, left knee 3+,Achilles DTR (S1) right 1+, S1 left 2+. PERRL, EOMI, no facial palsy, no dysarthria. Touch, pain and proprioception normal. CN 2-12 grossly intact, no sensory deficit, normal cognition, normal speech, no tremor PSYCHIATRIC: alert cooperative and oriented to person, place and time. Euthymic mood, makes good eye contact, language grossly intact, recent and remote memory grossly intact. Principal Diagnosis Intractable back pain Discharge Exam Constitutional WD/WN, vitals as above Respiratory normal respiratory effort, lungs clear to auscultation Cardiovascular Rate/Rhythm: regular rate and regular rhythm Vessels: normal peripheral pulses Extremities: no edema Musculoskeletal Right lower back paraspinal tenderness --improved from yesterday Skin no rashes, warm and dry Neurologic no focal motor deficits Psychiatric A+Ox3, euthymic affect Discharge Data Allergies Allergy/AdvReac Type Severity Reaction Status Date / Time acesulfame Allergy Intermediate Hives Verified 01/26/22 16:30 aspartame Allergy Intermediate Hives Verified 01/26/22 16:30 saccharin Allergy Intermediate Hives Verified 01/26/22 16:30 sucralose Allergy Intermediate Hives Verified 01/26/22 16:30 [From Splenda (sucralose)] Penicillins Allergy Mild Watery eyes Verified 01/25/22 06:26 hydrocodone [From Vicodin] AdvReac Severe Dizziness, Verified 01/25/22 06:26 heart racing, "hot" feeling Consultations 07/31/22 17:52 Consult Orthopedic Surgery Routine 08/01/22 09:41 Consult Pain Management Routine Ordered Studies Laboratory Results WBC 7.45 K/ul (4.8-10.8) 08/01/22 05:26 RBC 4.11 M/uL (4.20-5.40) L 08/01/22 05:26 Hgb 11.6 g/dl (12.0-16.0) L 08/01/22 05:26 Hct 36.5 % (37.0-47.0) L 08/01/22 05:26 MCV 88.8 fL (80.0-100.0) 08/01/22 05:26 MCH 28.2 pg (25.0-34.0) 08/01/22 05:26 MCHC 31.8 g/dL (32.0-36.0) L 08/01/22 05:26 RDW Std Deviation 43.0 fL (36.4-46.3) 08/01/22 05:26 RDW Coeff of [place] 13.2 % (11.5-14.5) 08/01/22 05:26 Plt Count 275 K/uL (130-400) 08/01/22 05:26 MPV 10.0 fL (9.4-12.4) 08/01/22 05:26 Immature Gran % (Auto) 0.3 % 07/31/22 14:57 Neut % (Auto) 83.0 % 07/31/22 14:57 Lymph % (Auto) 7.7 % 07/31/22 14:57 [place] % (Auto) 8.6 % 07/31/22 14:57 Eos % (Auto) 0.1 % 07/31/22 14:57 Baso % (Auto) 0.3 % 07/31/22 14:57 Neut # (Auto) 9.81 K/uL (1.40-6.50) H 07/31/22 14:57 Lymph # (Auto) 0.91 K/uL (1.2-3.4) L 07/31/22 14:57 [place] # (Auto) 1.02 K/uL (0.11-0.59) H 07/31/22 14:57 Eos # (Auto) 0.01 K/uL (0-0.50) 07/31/22 14:57 Baso # (Auto) 0.03 K/uL (0-0.2) 07/31/22 14:57 Immature Gran # (Auto) 0.03 K/uL (0.01-0.20) 07/31/22 14:57 Sodium 141 mmol/L (136-145) 08/04/22 07:34 Potassium 4.7 mmol/L (3.5-5.1) 08/04/22 07:34 Chloride 108 mmol/L (98-107) H 08/04/22 07:34 Carbon Dioxide 28 mmol/L (21-32) 08/04/22 07:34 Anion Gap 5 (3-11) 08/04/22 07:34 BUN 28 mg/dl (6-23) H 08/04/22 07:34 Creatinine 1.05 mg/dl (0.6-1.2) D 08/04/22 07:34 Est Cr Clr Drug Dosing 62.3 ml/min 08/04/22 07:34 Est GFR ( Amer) 62.3 ml/min 08/04/22 07:34 Est GFR (Non-Af Amer) 53.8 ml/min 08/04/22 07:34 BUN/Creatinine Ratio 26.7 (10-20) H 08/04/22 07:34 Glucose 108 mg/dl (70-99(Fasting)) H 08/04/22 07:34 Calcium 9.1 mg/dl (8.6-10.3) 08/04/22 07:34 Total Bilirubin 0.6 mg/dl (0.2-1.0) 07/31/22 14:57 AST 22 U/L (13-39) 07/31/22 14:57 ALT 19 U/L (7-52) 07/31/22 14:57 Alkaline Phosphatase 95 U/L (34-104) 07/31/22 14:57 Total Protein 7.4 gm/dl (6.0-8.3) 07/31/22 14:57 Albumin 4.2 gm/dl (3.4-5.0) 07/31/22 14:57 Globulin 3.2 gm/dl (2.5-4.0) 07/31/22 14:57 Albumin/Globulin Ratio 1.3 (0.9-2) 07/31/22 14:57 SARS-CoV-2, RNA, NAAT NEGATIVE (NEGATIVE) 07/31/22 17:18 Impressions Lumbar Spine MRI 07/31/22 14:16 MR lumbar spine wo con CLINICAL HISTORY: low back pain, weakness TECHNIQUE: Multiplanar sequences through the lumbar spine were obtained, without intravenous contrast. Comparison: None available at the time of this dictation. FINDINGS: Multilevel disc disease is seen. L1-L2: No significant abnormality. L2-L3: Broad-based posterior disc bulge is seen without significant canal stenosis. L3-L4: Broad-based posterior disc bulge, right greater than left, with mild right neural foraminal stenosis. L4-L5: Broad-based posterior disc bulge without significant neuroforaminal stenosis. L5-S1: No significant abnormality. The spinal ligaments are intact, without evidence of disruption or abnormal signal intensity. The spinal cord is normal in signal intensity and there is no evidence of cord contusion. There is no evidence of an extradural, intradural, extramedullary or intramedullary lesion. Visualized soft tissues are normal. IMPRESSION: Multilevel degenerative disc disease without significant canal stenosis. There is mild right neuroforaminal stenosis. ACT 112: Negative or not required by law. Electronically signed by: Gilbert Mendiola M.D. 07/31/2022 4:57 PM Hospital Course (1) Acute back pain: (2) Ambulatory dysfunction: (3) Degenerative disc disease: Disc disease with pain recently exacerbated by long car travel Lumbar spine MRI IMPRESSION: Multilevel degenerative disc disease without significant canal stenosis. There is mild right neuroforaminal stenosis. Evaluated by spine Ortho --recommending pain management consult Pain management recommendations- Medrol Dosepak and baclofen 10 mg 3 times daily; oxycodone 5 mg every 6 hours as needed. Pain improved with addition of Medrol and baclofen -- continue Medrol Dosepak taper at discharge and baclofen TID x 7 days Received scheduled NSAID therapy however developed GENE, therefore discontinued Holding on steroid injection at this time. PT/OT - recommending outpatient PT (4) GENE (acute kidney injury): (5) CKD (chronic kidney disease), stage III: Baseline creat ~ 0.8 - 1.1 Creat up to 1.6 on 08/03 Likely due to NSAIDs -- d/c scheduled NSAID, started IVF Received IVF with improvement in creatinine, creatinine 1.0 on day of discharge (6) Elevated blood pressure reading: BP consistently elevated during admission, situational/pain likely contributing Started on amlodipine 5 mg with improvement in BP --continue at discharge and follow-up with PCP Recommend echocardiogram as outpatient (7) Hypothyroidism: Chronic, stable. Cont levothyroxine per home regimen Total Time Total Time Spent Total Time Spent (In Minutes): 40 Discharge Plan Discharge Items Patient Disposition: Home - Self-Care Reason For Visit: Back Pain Discharge Diagnosis: Back Pain/Lumbar Radiculopathy Condition on Discharge: Good Activity: As commented below Activity Comment: as tolerated/as per outpatient PT/OT recommendations Non-emergency contact: Primary Care Provider Call non-emergency contact if: you have any medication questions, your symptoms worsen, your pain is not controlled and your pain is concerning for you Follow-up/Referrals: Ramsey Vera PA-C [Primary Care Provider] - 08/10/22 8:20 am (Date & Time 08/10/2022 8:20 AM Provider Ramsey Vera PA-C Department [facility] ) Diet: Heart Healthy Addtl Attending Provider Instructions: You came to the hospital for evaluation of back pain. Back MRI showed multilevel degenerative disc disease without significant stenosis. You were evaluated by spine orthopedics and pain management. Spine orthopedics is not recommending surgery at this time. Pain management recommended steroids and baclofen (muscle relaxer). You had improvement with starting these medications, therefore steroid injection was deferred at this time. You were provided with a prescription to start outpatient PT and OT. You were also found to have elevated blood pressure during admission and was started on amlodipine 5 mg daily. Your PCP will follow-up and order echocardiogram. Check your blood pressure twice daily and provide log to your PCP at follow-up appointment. New medications: Methylprednisolone (Medrol) Dosepak (steroid)-- take as per instructions: Today -take 4 mg tablet at dinner and bedtime 7-take 4 mg 3 times a day 8-take 4 mg twice daily 08/07-take 4 mg once Then stop Baclofen 10 mg (muscle relaxer) 3 times a day x 7 days Amlodipine (Norvasc) (blood pressure medication) 5 mg daily Oxycodone 5 mg 4 times a day as needed for pain You may also use an [id number]-ata-ropzabn pain cream (Bengay, IcyHot, Voltaren gel). Oxycodone may cause constipation, take an ixoo-yxo-kenmzde stool softener/laxative daily. Due to chronic kidney disease, avoid NSAIDs (ibuprofen, Motrin, Advil). It was a pleasure taking care of you. If you need to reach a member the [facility] hospitalist team at [facility], please call [phone]. CHICHO Enam[place]ado Pending Studies at Discharge: No Stand-Alone Forms: My [facility], Smoking Cessation Medications and DC Order Prescriptions: New amlodipine [Norvasc] 5 mg Tablet 5 mg PO QAM Qty: 30 0RF baclofen 10 mg Tablet 10 mg PO TID Qty: 21 0RF oxycodone 5 mg Tablet 5 mg PO QID PRN (Reason: pain) Qty: 14 0RF sennosides-docusate sodium [Senokot-S] 8.6-50 mg Tablet 1 tab PO QAM Qty: 1 0RF methylprednisolone 4 mg Tablet See Rx Instructions .ROUTE .COMPLEX Qty: 8 0RF Rx Instructions: 4 mg orally ;08/04-take 4 mg tablet at dinner and bedtime7-take 4 mg 3 times a day48-take 4 mg twice daily08/07-take 4 mg once; Then stop Continued cholestyramine (with sugar) 4 gram powder 1 ea PO HS diphenoxylate-atropine 2.5-0.025 mg tablet 1 tab PO Q6H PRN (Reason: Diarrhea) loratadine 10 mg tablet 10 mg PO DAILY PRN (Reason: ALLERGY RELIEF) multivitamin Tablet 1 tab PO QAM (DME) [place] [facility] [place] Rx Instructions .MEDSUPPLY Qty: 1 0RF Rx Instructions: As directed levothyroxine 125 mcg tablet 125 mcg PO DAILYBB [place] Plus Cold-Flu 12.5-10-20-650 mg Powder In Packet 1 packet PO MONTHLY PRN (Reason: stomach problems ) Rx Instructions: DNExceed 5 doses/24h Discharge Orders: Discharge Order (Routine); Ordered 08/04/22 Ordered By: Yesi Lopez Admission Data Admit Date/Time: 07/31/22 17:52 Attending Provider: Farzana Caldera Admit Provider: Julia Alston Primary Care Provider: Ramsey Vera Other Providers: Daniel Goldstein ; Julia Alston ; Francy Kendrick ; Mk rCow Other Interventions: Discharge Summary Assessment (RN) Last Done: 08/04/22 14:20 Supervising Physician Co-Signing Physician Notes Patient seen and examined at bedside as a follow-up of acute back pain and ambulatory dysfunction, today improved acute kidney injury on CKD stage III. s/p IV fluid. Patient reports pain getting better. On examination, patient on room air, NAD, heart/lung/abdomen fairly WNL. Rest of the examination as above. Pt to follow up w/ pcp regarding mx of HTN on long chain quiller tender basis. pt to measure BP at [facility] log to bring to PCP visit. Pt aware. I have seen and examined the patient and have discussed the case with the provider above. I agree with the assessment and plan as stated.
[2022-08-05] MEDS ORDERED: methylPREDNISolone 4 MG TAB PO SCH (07:00)
[2022-08-06] MEDS ORDERED: methylPREDNISolone 4 MG TAB PO SCH (07:00)
[2022-08-07] MEDS ORDERED: methylPREDNISolone 4 MG TAB PO SCH (07:00)
== END 2022-08-04 15:23 | disposition home or self-care (01) | DRG 552 ==
LOC: ED 13:05 → SUATTDRO 17:52 → 3E 17:52